=== PATIENT | male | born 1945 | race Caucasian/White ===

== ENCOUNTER 2016-09-07 09:36 | Inpatient (IN) | payer MEDICARE, MEDICAID ==
[~2016-09-07] VITALS: Ht 165.1 cm; Wt 79.1 kg
[~2016-09-07 09:36] MED LIST: ACETAMINOPHEN325 MG PO; ASPIRIN81 MG PO; ATROVENT 0.02%2.5 ML UPD; BENADRYL25 MG PO; BREO ELLIPTA 11 EACH INH; BUMEX 1 MG TAB1 MG PO; DULCOLAX10 MG/SUPP RC; ELIQUIS5 MG PO; GABAPENTIN100 MG PO; GAS-X80 MG PO; HUMALOG 30100 UNITS/ SC; IPRAT-ALBUT 0.5-3 ML UPD; METOPROLOL TART25 MG PO; MIRALAX17 GM PO; MUCINEX DM ER1 EAC1 PO; PEPCID20 MG PO; PERCOCET 5-3251 TAB PO; PRAVACHOL20 MG PO; PROTONIX40 MG PO; PROZAC20 MG PO; PULMICORT0.5 MG/21 INH; SINGULAIR10 MG PO; SPIRIVA18 MCG INH; STERAPRED 5MG 65 M1 PO; THEO-24300 MG PO; VALTREX500 MG PO; VIBRAMYCIN 100100 MG PO; VITAMIN D5000 UNIT PO; XANAX0.5 MG PO
[2016-09-07] MEDS ORDERED: DULCOLAX5 MG PO (11:27)
[2016-09-07] MEDS ORDERED: COUMADIN5 MG PO (11:27)
[2016-09-07] MEDS ORDERED: IPRAT-ALBUT 0.5-3 ML UPD (11:30)
[2016-09-07] MEDS ORDERED: BUSPAR5 MG PO (11:30)
[2016-09-07] MEDS ORDERED: LEVEMIR100 U/M1 SC ×2 (11:31→11:32)
[2016-09-07] MEDS ORDERED: INSTA-GLUCOSE31 G1 PO (11:44)
[2016-09-07] MEDS ORDERED: GLUCAGEN1 MG/VIAL SC (11:44)
[2016-09-07] MEDS ORDERED: BACTROBAN NASAL1 GM NASAL (11:46)
[2016-09-07] MEDS ORDERED: BACTROBAN CREAM15 GM TOPICAL (11:48)
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
[2016-09-07 16:09] VITALS: BP 100/77; BMI 27.5
--- NOTE | 2016-09-07 17:54 | NUR ---
PATIENT FINISHED EATING DINNER, HE WENT TO GO THROUGH THE DOUBLE DOORS TO HIS ROOM, ASKED HIM IF I COULD HELP HIM, HE SAID "YES, I'M GOING THAT WAY TO MY ROOM, TO BED" EXPLAINED TO HIM THAT HE WAS NOT ABLE JUST YET. HE SAID "THAT'S DUMB" EXPLAINED THAT'S JUST SOME OF THE RULES. PATIENT WOULD NOT MOVE FROM THE DOOR SO THIS NURSE AND DIETARY STAFF COULD GO THROUGH THE DOOR. TRIED TO EXPLAIN AND REASON WITH PATIENT, BUT HE IS NOT LISTENING. HE IS STILL SITTING BY DOOR IN HIS W/C.
[2016-09-07 19:30] VITALS: BP 101/67
[2016-09-07 19:45] LABS: BASOPHILS 0.1 % (0.0-2.0); HEMOGLOBIN 13.1 g/dL (13.5-17.5); IMMATURE GRANULOCYTES 0.5 % (0-5); LYMPHOCYTES 10.1 % (15-50); MCH 28.6 pg (26.0-34.0); MCHC 31.2 g/dL (31.0-37.0); MCV 91.7 fL (80.0-100.0); MEAN PLATELET VOLUME 9.8 fL (7.4-10.4); MONOCYTES 10.2 % (2-11); NEUTROPHILS 77.1 % (40-80); RBC 4.58 10x6/uL (4.20-6.10); RDW 14.2 % (11.5-14.5); WBC 8.8 10x3/uL (4.8-10.8)
[2016-09-07 19:47] LABS: PLATELET COUNT 203 10x3/uL (130-400)
[2016-09-07 20:10] LABS: HEMOGLOBIN A1C 8.4 % (4.8-6.0)
[2016-09-07 20:16] LABS: ALBUMIN 3.3 g/dL (3.4-5.0); ALKALINE PHOSPHATASE 64 U/L (46-116); ALT (SGPT) 31 U/L (10-68); BILIRUBIN - TOTAL 0.27 mg/dL (0.2-1.3); CALC OSMOLALITY 282 mosm/kg (275-300); CALCIUM 9.3 mg/dL (8.5-10.1); CARBON DIOXIDE 33.1 mmol/L (21.0-32.0); CHLORIDE - SERUM 98 mmol/L (98-107); CHOLESTEROL, TOTAL 208 mg/dL (0-200); CREATININE - SERUM 1.5 mg/dL (0.6-1.3); GLUCOSE 219 mg/dL (74-106); HDL CHOLESTEROL 42 mg/dL (32-96); POTASSIUM - SERUM 4.3 mmol/L (3.5-5.1); PROTEIN - SERUM 6.7 g/dL (6.4-8.2); SODIUM 137 mmol/L (136-145); THYROID STIMULATING HORMONE 1.02 uIU/mL (0.36-3.74); TRIGLYCERIDE 490 mg/dL (30-200); UREA NITROGEN 19 mg/dL (7-18); eGFR NON AFRICAN AMERICAN 49 mL/min (90-120)
[2016-09-08 00:58] LABS: APPEARANCE CLEAR (CLEAR); BILIRUBIN NEGATIVE (NEGATIVE); COLOR YELLOW (YELLOW); GLUCOSE NEGATIVE (NEGATIVE); KETONE NEGATIVE (NEGATIVE); LEUKOCYTE ESTERASE NEGATIVE (NEGATIVE); NITRITE NEGATIVE (NEGATIVE); PROTEIN NEGATIVE (NEGATIVE); SPECIFIC GRAVITY 1.015 (1.005-1.020); UROBILINOGEN NORMAL (NORMAL)
--- NOTE | 2016-09-08 01:59 | NUR ---
AWAKE AND COMPLAINING OF LEFT ABDOMINAL CHEST DISCOMFORT AT LEVEL#10. TYLENOL 650 MG. PO GIVEN, O2 SAT= 96% AFTER O2 APPLIED. HE DOES SNEEZE AT TIMES.
--- NOTE | 2016-09-08 02:59 | NUR ---
STILL COMPLAINING OF UPPER LEFT CHEST AREA ACHING AND THROBBING. PERCOCET 5/325 MG PO GIVEN FOR LEVEL #10 DISCOMFORT.
--- NOTE | 2016-09-08 06:30 | NUR ---
FSBS= 86 GIVEN A GLASS OF ORANGE JUICE.
[2016-09-08 09:27] VITALS: Ht 165.1 cm; Wt 79.1 kg
[2016-09-08 09:45] LABS: INR 1.12 (0.85-1.17); PROTIME 14.3 SECONDS (11.6-15.0)
[2016-09-08 10:37] VITALS: BP 151/71
--- NOTE | 2016-09-08 15:35 | NUR ---
RECEIVED SITTING UP IN WC IN HALLWAY AT NURSES STATION THIS AM.IS COMPLIANT WITH STAFF AND MEDS BUT STATE"WHEN I GET BACK THERE I'M GOING TO FIND OUT WHO SAID THAT ABOUT ME,I'M GOING TO RAISE HELL."WILL CONTINUE WITH PLAN OF CARE,MONITOR FOR SAFETY AND CHANGES.
[2016-09-08 20:00] VITALS: BP 114/64
--- NOTE | 2016-09-09 01:47 | NUR ---
B) Recieved sitting in a wheelchair in the day room, watching TV, Alert and oriented X 3, calm and social with peers, remembers this nurse from 7 months ago, I) Administered perscribed medications, redirected as needed, PRN Percocet PO given at 0100 for abdomen pain , R) Medication compliant, needy and attention seeking at times, P) Continue plan of care, continue to monitor.
[2016-09-09 07:29] LABS: INR 1.14 (0.85-1.17); PROTIME 14.5 SECONDS (11.6-15.0)
--- NOTE | 2016-09-09 08:12 | NUR ---
B) Patient is awake and alert, he is hyperverbal and he is argumentative with staff, he was redirected and his retort "Well, someone has to give you a hard time" Patient is making remarks of the things he plans to do today. He is trying to get attention. Attempted to weigh patient and he is arguing with Lyudmila Tay [facility] saying he needs his leg to weigh. Attempted to redirect patient, but he argued and said "I need my leg to weigh, Told him "No, we weighed you on admit without your prosthesis" Patient argued and said "You never weighed me" Lyudmila explained to him that we are not arguing anymore. Did weigh patient with w/c and O2 tank, but on admit he stood without O2 on. Patient is on isolation and he has an ISO gown on d/t sores on his back. I) Provide prescribed meds, redirect as needed to appropriate behavior. R) Patient is sitting in hallway, arguing with staff. P) Continue plan of care.
[2016-09-09 09:55] VITALS: BP 117/68
--- NOTE | 2016-09-09 10:46 | NUR ---
Patient c/o pain, he says it is the end of his amputated leg, rates it /.
--- NOTE | 2016-09-09 11:20 | NUR ---
Patient no longer has pain at this time.
--- NOTE | 2016-09-09 17:38 | NUR ---
Patient continues to talk and talk and talk, some of the patients moved away from him because he wants to talk and they want to rest.
[2016-09-09 19:30] VITALS: BP 122/72
--- NOTE | 2016-09-09 22:09 | NUR ---
RECEIVED IN DAYROOM. SETTING IN WHEELCHAIR WITH PEERS AT HIS SIDE. SOCIAL WITH STAFF AND PEERS. CALM AND COOPERATIVE WITH CARE AND ASSESSMENT. ENCOURAGE TO ASK FOR ASSIST WHEN NEEDED. SHOWERED THIS PM. ENCOURAGE TO EXPRESS NEEDS. REINFORCE FALLS SAFETY. PM MEDS GIVEN ORDERED. RESTING IN BED AT THIS TIME. CONTINUE PLAN OF CARE
[2016-09-10 10:00] LABS: PROTIME 17.2 SECONDS (11.6-15.0)
[2016-09-10 10:03] LABS: INR 1.41 (0.85-1.17)
[2016-09-10 10:26] VITALS: BP 110/42
--- NOTE | 2016-09-10 10:52 | PSY ---
PATIENT NAME:YIN CRUZ MEDICAL RECORD: [id number] : 47 LOCATION:[facility] ADMISSION DATE: 09/07/16 ACCOUNT: [id number] PSYCHIATRIC EVALUATION DATE OF EVALUATION: 09/08/16 Initial Psychiatric Workup IDENTIFYING DATA: This is the first [facility] admission for this 70-year-old white male. The patient is a resident at [facility]. HISTORY OF PRESENT ILLNESS: This patient ____. He also has past history of marked anxiety disorder and poor impulse control. The patient was transferred and because of combative behavior with a roommate. The patient became upset when the roommate attempted to adjust the TV remote control. The patient has exhibited emotional lability in the past as well. Because of potential danger to others, the patient was admitted. PAST MEDICAL HISTORY: Significant for type 1 diabetes. The patient has had recent pneumonia, he has a chronic obstructive pulmonary disease, hypertension, past history of deep venous thrombosis. He has a history of peripheral neuropathy. He has undergone a left [id number] amputation, and has a history of peripheral vascular disease as well. The patient also has a past history of MRSA. ALLERGIES: INCLUDE PENICILLIN AND SULFONAMIDE ANTIBIOTICS. FAMILY HISTORY: Noncontributory. SOCIAL HISTORY: The patient does not have substance abuse issues. He has been a [facility] resident for some time. MENTAL STATUS: On interview, the patient's mood is, for the most part, euthymic. Affect is rather constricted. Speech tends to be terse. Content of thought is focused on somatic complaints. The patient denies suicidal ideation. There is no clear cut psychosis. On sensorium testing, the patient is oriented to person and the fact that he is hospitalized. He is not correctly oriented as to the date. Remote recall appears to be intact. Intermediate and short-term recall shows some deficits. Insight is very limited. Judgment is quite poor. DIAGNOSTIC IMPRESSION: AXIS I: Major depressive disorder - recurrent by history, possible impulse control disorder. AXIS II: Deferred. AXIS III: Type 1 diabetes, hypertension, chronic obstructive pulmonary disease, deep venous thrombosis by history of below the knee amputation, vitamin D deficiency. AXIS IV: Moderate. AXIS V: 36. PLAN: 1. The patient is admitted for medication adjustment as indicated. 2. Supportive therapy. 3. We will coordinate with correction regarding aftercare. TRANSINT:[id number] Voice Confirmation ID: [id number] DOCUMENT ID: [id number] ALEXEI LOO III, MD at 1052 CC: [id number] DICTATION DATE: 09/08/161701 FIFTH HAND: 09/08/16 1815 ADM IN [place] [id number] [place] [id number]
[2016-09-10 11:12] LABS: VITAMIN D 25 HYDROXY 29.5 ng/mL (30.0-100.0)
--- NOTE | 2016-09-10 13:00 | NUR ---
B.) Alert and oriented to name and place. I.) Administer meds and monitor compliance, encourage group participation and socialization, redirect for any inappropriate behavior. R.) Compliant with medications. social with others, pleasant and cooperative with no aggression. Contact precautions maintained, compliant with leaving gown and gloves on. safety maintained. P.) Continue plan of care.
[2016-09-10 20:26] VITALS: BP 115/65
--- NOTE | 2016-09-10 21:50 | NUR ---
RECEIVED IN BEDROOM. LAYING IN BED WITH EYES CLOSED. RESPONDS TO TOUCH. CALM AND COOPERATIVE WITH CARE AND ASSESSMENT. NO SIGNS OF AGGRESSION. ENCOURAGE TO ASK FOR ASSIST WHEN NEEDED. PM MEDS GIVEN ORDERED. RESTING EYES CLOSED AT THIS TIME. CONTINUE PLAN OF CARE
[2016-09-11 03:09] LABS: RAPID PLASMA REAGIN Non Reactive (Non Reactive)
[2016-09-11 09:12] LABS: FOLATE (FOLIC ACID) - SERUM 4.3 ng/mL (>3.0)
[2016-09-11 09:44] LABS: PROTIME 20.5 SECONDS (11.6-15.0)
[2016-09-11 09:50] LABS: INR 1.76 (0.85-1.17)
[2016-09-11 10:14] VITALS: BP 103/69
--- NOTE | 2016-09-11 10:37 | NUR ---
Nutrition Follow Up: Chart reviewed. Noted Promod was ordered for pt. Diet: ADA AHA PO Intake: 100% x 10 meals +BM 09/10/16 Labs noted; Labs elevated Meds: Methylprednisone, Levemir, Vit D, Bumex, Humalog Pt with excellent po intake at this time. Pt is meeting est nutritional needs. Rec continue current diet. Rec d/c Promod. RD following.
--- NOTE | 2016-09-11 10:40 | PN ---
PATIENT:YIN CRUZ MEDICAL RECORD: [id number] LOCATION:[facility] ADMISSION DATE: 09/07/16 PROGRESS NOTE DATE OF SERVICE: 09/10/2016 SUBJECTIVE: The patient states that he does not feel well. OBJECTIVE: The patient continues to exhibit very withdrawn behavior. Affect is flat. Mood is very sullen. Speech is somewhat dysarthric, low in volume and poorly articulated. Content of thought appears to be negative for overt psychosis. Sensorium testing reveals the patient is oriented to person and the fact that he is hospitalized. He is not correctly oriented as to time. Concentration, short term recall are poor. ASSESSMENT: No change in diagnoses. PLAN: 1. Add Lexapro 10 mg daily. 2. Continue other currently ordered medication. 3. Continue supportive therapy. TRANSINT:[id number] Voice Confirmation ID: [id number] DOCUMENT ID: [id number] ALEXEI LOO III, MD at 1040 CC: [id number] DICTATION DATE: 09/10/16 1138 [place] ADMINISTRATOR: 09/10/16 [address] [facility] [address] [id number]
--- NOTE | 2016-09-11 11:29 | NUR ---
B.) Received this am lying in bed, alert and oriented to name, patient avoids ansering questions regarding place and time, laughs and says " in this bed right here." aludes questions by talking around questions. I.) Administer prescribed medications and monitor compliance. Reorient and redirect as need for inappropriate behavior. Monitor safety and maintain contact precautions. R.) Compliant with medications, very social with others with no aggression but is intrusive and provocative, observed trying to make a patient play dominoes with him made statement of " that doctor just trying to read my mind, aint nothing the wrong with me." Compliant with wearing isolation gown and gloves. Left leg prothesis on, chair alarm in place and functioning properly. P.) Continue plan of care.
[2016-09-11 19:40] VITALS: BP 134/73
--- NOTE | 2016-09-11 21:06 | NUR ---
RECEIVED IN DAYROOM. SETTING IN WHEELCHAIR. MOVING ABOUT SOCIALIZING. INTRUSIVE AT TIMES. CALM AND COOPERATIVE WITH CARE AND ASSESSMENT. NO SIGNS OF AGGRESSION. REDIRECT NEEDED. PM MEDS GIVEN ORDERED. TRANSFERE TO BEDROOM AT THIS TIME. CONTINUE PLAN OF CARE
[2016-09-12 06:53] LABS: INR 2.34 (0.85-1.17); PROTIME 25.7 SECONDS (11.6-15.0)
--- NOTE | 2016-09-12 07:41 | PN ---
PATIENT:YIN CRUZ MEDICAL RECORD: [id number] LOCATION:[facility] ADMISSION DATE: 09/07/16 PROGRESS NOTE DATE OF SERVICE: 09/11/2016 SUBJECTIVE: The patient states, "You all are trying to control me and read my mind." OBJECTIVE: The patient has been provocative with other patients. He has been deliberately irritating certain female patients and has to be redirected. Staff note that he seems to have a great deal of difficulty following instructions and there are frequent word finding pauses as well. On exam, mood is irritable. Affect is brittle. Speech is repetitive. Content of thought is positive for paranoid ideation. On sensorium testing, the patient is oriented to person, but not precisely as to location, although he knows he is in a hospital. He is not oriented as to time. 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 PLAN: 1. Continue current medications. 2. We will ask Dr. Anderson to evaluate. 3. Continue supportive therapy. TRANSINT:[id number] Voice Confirmation ID: [id number] DOCUMENT ID: [id number] ALEXEI LOO III, MD at 0741 CC: [id number] DICTATION DATE: 09/11/16 1130 FARMWORKER GENERAL: 09/11/16 1200 ADM IN [place] [id number] [place] [id number]
[2016-09-12 08:03] VITALS: BP 115/51
--- NOTE | 2016-09-12 19:49 | PN ---
PATIENT:YIN CRUZ MEDICAL RECORD: [id number] LOCATION:[facility] ADMISSION DATE: 09/07/16 PROGRESS NOTE DATE OF SERVICE: 09/12/2016 SUBJECTIVE: The patient complains about having to be in the hospital. OBJECTIVE: The patient becomes very easily agitated, verbally and has to be redirected. He now does not like the fact that he is in the isolation for infection. On exam, mood is irritable. Affect is brittle. Speech is slightly pressured at times. Content of thought focuses on paranoid ideation and somatic complaints. Sensorium unchanged. ASSESSMENT: No change in diagnosis. PLAN: 1. We will continue all current medications. 2. Continue supportive therapy. TRANSINT:[id number] Voice Confirmation ID: [id number] DOCUMENT ID: [id number] ALEXEI LOO III, MD at 1949 CC: [id number] DICTATION DATE: 09/12/16 112 TECHNICIAN TRAINEE: 09/12/16 1149 ADM IN [facility] [address] [place] [address]
[2016-09-12 19:53] VITALS: BP 111/60
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
--- NOTE | 2016-09-13 05:13 | NUR ---
B) RECIEVED SITTING IN A WHEEL CHAIR IN THE DAY ROOM WATCHING TV, ALERT AND ORIENTED X 3 , INTRUSIVE AT TIMES, CALM AND COOPERATIVE WITH STAFF, I) ADMINISTERED PERSCRIBED MEDICATIONS, REDIRECTED NEEDED, R) MEDICATIONS COMPLIANT, NO DISTRESS NOTED, P) CONTINUE PLAN OF CARE.
[2016-09-13 07:49] LABS: INR 2.65 (0.85-1.17); PROTIME 28.4 SECONDS (11.6-15.0)
[2016-09-13 08:08] VITALS: BP 114/71
--- NOTE | 2016-09-13 13:01 | NUR ---
B.) Alert and oriented to name, will not answer question of place and time " I'm still here." I.) Administer prescribed medications and monitor compliance, reorient and redirect as need. Monitor safety and maintenance of contact precautions. R.) Compliant with medications, smiles and is very social and intrusive with others, noted purposely aggitating one of his peers by putting news paper in her face and waiting for her to hit at it and pulled it away, laughing... redirect for inappropriate behavior...redirectable. No aggresive or combative behavior. Safety maintained contact isolation maintained with gown and gloves on and appropriate distance from other patients, areas kept cleaned. P.) Continue plan of care.
[2016-09-13 19:30] VITALS: BP 107/67
--- NOTE | 2016-09-13 20:26 | NUR ---
RECEIVED IN DAYROOM. SETTING IN WHEELCHAIR IN FRONT OF TV. CONTACT ISOLATION CONTINUES. CALM AND COOPERATIVE WITH CARE AND ASSESSMENT. SOCIAL WITH STAFF AND PEERS. O2@2L/M VIA N/C. NO SIGNS OF AGGRESSION. REDIRECT NEEDED. ENCOURAGE TO EXPRESS NEEDS. CONTINUES TO SET QUIETLY WATCHING TV. CONTINUE PLAN 0F CARE
[2016-09-14 07:48] LABS: INR 2.98 (0.85-1.17); PROTIME 31.2 SECONDS (11.6-15.0)
[2016-09-14 08:08] VITALS: BP 111/54
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
[2016-09-14 20:00] VITALS: BP 220/128
--- NOTE | 2016-09-14 23:57 | NUR ---
B) Recieved sitting in a wheel chair in the day room, alert and oriented X 3, calm and cooperative, I) Administered perscribed medications, redirected as needed, R) Medication compliant, social with staff, P) Continue plan of care, continue to monitor.
[2016-09-15 06:51] LABS: INR 2.15 (0.85-1.17)
[2016-09-15 10:39] VITALS: BP 107/65
--- NOTE | 2016-09-15 14:46 | NUR ---
B) Patient is awake and alert and he is watching tv and he is coloring, he is staying busy, but he does have some confusion. Dr. Anderson came in to assess another patient and he cornered her to ask her "Why have you prescribed all those pills" Dr. Anderson said "I don't prescribed medicine, it must have been either Dr. Gray or Dr. Mixon He said "No, he said you would do it" Dr. Anderson said "No, you must have it confused" and she walked away as he wanted to be confrontational. He said "I don't have anything confused" Patient wears a prosthesis and he can ambulate with a walker, self propels in a w/c at times and he is independent to transfer. I) Provide prescribed meds and redirect to appropriate milieu. R) Patient is compliant with meds and he listens to redirection. He is a bit disgruntled to be here and he said "I'm tired of taking all of these medicines" P) Continue plan of care.
[2016-09-15 19:36] VITALS: BP 108/66
--- NOTE | 2016-09-16 00:31 | NUR ---
B) Recieved sitting in a wheel chair in the day room, alert and oriented X 3, calm and cooperative with staff, I) Administered perscribed medications, redirected as needed, R) Medication compliant, more sedated that usual P) Continue plan of care, continue to monitor.
[2016-09-16 09:59] VITALS: BP 102/50
[2016-09-16 10:10] LABS: INR 1.76 (0.85-1.17); PROTIME 20.5 SECONDS (11.6-15.0)
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
[2016-09-16 20:00] VITALS: BP 130/86
--- NOTE | 2016-09-17 00:24 | NUR ---
B) recieved sitting in a wheel chair in the day room , alert and oriented x 3, watching TV, calm and pleasant, I) Administered perscribed medications, assisted with transfers, R) refused Depakote , took all other medications, stated that he was too sedated yesterday, P) Continue plan of care, continue to monitor.
[2016-09-17 07:03] LABS: INR 1.62 (0.85-1.17); PROTIME 19.2 SECONDS (11.6-15.0)
--- NOTE | 2016-09-17 10:16 | PN ---
PATIENT:YIN CRUZ MEDICAL RECORD: [id number] LOCATION:[facility] ADMISSION DATE: 09/07/16 PROGRESS NOTE DATE OF SERVICE: 09/13/2016 SUBJECTIVE: The patient states "I don't care." OBJECTIVE: The patient did undergo neuropsychological testing with Dr. Anderson today. Results indicate moderate to severe level of dementia. The patient remains rather poorly cooperative. He is also provocative and intrusive with other patients and requires redirection. On exam, mood is irritable. Affect is brittle. Speech is terse. Content of thought is positive for nonspecific paranoid ideation. Sensorium shows no change. ASSESSMENT: No change in diagnosis. PLAN: 1. Begin Namenda 5 mg b.i.d. 2. Add Depakote 375 mg b.i.d. 3. Valproic acid blood level in 2 days. 4. Continue other medications and supportive therapy. TRANSINT:[id number] Voice Confirmation ID: [id number] DOCUMENT ID: [id number] ALEXEI LOO III, MD at 1016 CC: [id number] DICTATION DATE: 09/13/16 1221 LEAD ADVISOR: 09/13/16 1333 ADM IN [facility] [address] [id number]
[2016-09-17 10:28] VITALS: BP 106/59
--- NOTE | 2016-09-17 13:51 | PN ---
PATIENT:YIN CRUZ MEDICAL RECORD: [id number] LOCATION:[facility] ADMISSION DATE: 09/07/16 PROGRESS NOTE DATE OF SERVICE: 09/14/2016 SUBJECTIVE: The patient's case was discussed with staff. He has no new complaint. OBJECTIVE: The patient is in good behavioral control, but has limited insight about his condition. He does tolerate his medications reasonably well. ASSESSMENT: No change in diagnoses. PLAN: I am going to start the patient on antidepressant medication. He has been paranoid and intrusive. He is already taking an antipsychotic. I am going to check a Depakote level to see if that is close to therapeutic and I have asked Dr. Alley Anderson to test him since I think this patient has evidence of pretty significant and severe cognitive impairment. TRANSINT:[id number] Voice Confirmation ID: [id number] DOCUMENT ID: [id number] SAGE MALONE MD at 1351 CC: [id number] DICTATION DATE: 09/14/16 142 BACK MAKER: 09/14/16 1805 ADM IN [facility] [address] [place] [address]
--- NOTE | 2016-09-17 16:50 | NUR ---
RECEIVED THIS AM SITTING UP IN WC AT NURSES STATION.CALM AND COOPERATIVE.TOOK ALL AM MEDS EXCEPT FOR DEPAKOTE,STATES"IT MAKES ME CRAZY."WILL CONTINUE WITH PLAN OF CARE,MONITOR FOR SAFETY AND CHANGES.IS ALERT AND ORIENTED,PROPELLS SELF IN WC .
--- NOTE | 2016-09-17 17:45 | NUR ---
Contact isolation precautions maintained and patient compliant.
--- NOTE | 2016-09-17 17:47 | NUR ---
Patient is demanding and argumentive but is not combative with staff or peers.
[2016-09-17 19:39] VITALS: BP 116/67
--- NOTE | 2016-09-17 20:59 | NUR ---
RECEIVED IN DAYROOM. SETTING ON SOFA. ISOLATION CONTINUES. O2@2L/M VIA N/C. NO SIGNS OF ANXIETY OR DEPRESSION. CALM AND COOPERATIVE WITH CARE AND ASSESSMENT. REDIRECT AND REORIENT NEEDED. PM MEDS GIVEN ORDERED. RESTING IN ROOM AT THIS TIME. CONTINUE PLAN OF CARE
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
--- NOTE | 2016-09-18 09:45 | NUR ---
B.) Alert and oriented to name and place, has no insight to why he is hospitalized, calm and cooperative with assessment this am. I.) Adm. precribed medications and monitor compliance, redirect and reorient as need. Monitor safety and encourage group participation. R,) Compliant with all his medications except the Depakote, states it makes him feel " crazy", Patient less talkative today with staff and peers. Asked if he was depressed, he just looked at nurse and would not say, later he was sitting up at table conversing with director of student financial aid and smiled and joked with this nurse. No signs of anxiety or intrusive behavior today. Isolation precautions maintained P.) Continue plan of care.
--- NOTE | 2016-09-18 11:07 | NUR ---
Nutrition Follow Up: Chart reviewed. Diet: AHA ADA; Promod PO Intake: 91% (8 meal avg) +BM 09/17/16 Labs noted - Glucose elevated Meds: Coumadin, Bumex, Levemir, Humalog Pt with good po intake at this time. Rec continue current diet. Rec d/c Promod. RD following.
[2016-09-18 14:08] VITALS: BP 132/68
[2016-09-18 15:40] LABS: INR 1.74 (0.85-1.17); PROTIME 20.3 SECONDS (11.6-15.0)
[2016-09-18 20:35] VITALS: BP 125/66
[2016-09-18 21:25] VITALS: BP 105/66
--- NOTE | 2016-09-18 22:10 | NUR ---
RECEIVED IN DAYROOM. SETTING IN DAYROOM ON SOFA. LETHARGIC. COOPERATIVE WITH CARE. TEMP 101.9 TYLENOL 650MG PO GIVEN FOR FEVER. PULSE 132 R 32. REASSESS VITALS TEMP 102.1 B/P 105/66, P 137, RESP 30, O2 SAT 97, DR BEAR PAGED AND CALL RECEIVED, NEW ORDERS FOR CARDIAC ENZYMES ORDERED FOR NOW. TROPONIN, CMP,CBC,CK AND CXR
[2016-09-18 23:07] LABS: BASOPHILS 0 % (0.0-2.0); EOSINOPHILS 3.5 % (0-7); HEMATOCRIT 37.5 % (42.0-54.0); HEMOGLOBIN 11.9 g/dL (13.5-17.5); IMMATURE GRANULOCYTES 0.4 % (0-5); MCH 29.2 pg (26.0-34.0); MCHC 31.7 g/dL (31.0-37.0); MCV 91.9 fL (80.0-100.0); MONOCYTES 7.6 % (2-11); NEUTROPHILS 85.5 % (40-80); PLATELET COUNT 196 10x3/uL (130-400); RBC 4.08 10x6/uL (4.20-6.10); RDW 15.9 % (11.5-14.5); WBC 10.9 10x3/uL (4.8-10.8)
[2016-09-18 23:22] LABS: ALBUMIN 2.4 g/dL (3.4-5.0); ALKALINE PHOSPHATASE 94 U/L (46-116); ALT (SGPT) 52 U/L (10-68); BILIRUBIN - TOTAL 0.79 mg/dL (0.2-1.3); CALCIUM 9.1 mg/dL (8.5-10.1); CHLORIDE - SERUM 98 mmol/L (98-107); CREATINE KINASE 43 UL (21-232); CREATININE - SERUM 1.5 mg/dL (0.6-1.3); POTASSIUM - SERUM 3.9 mmol/L (3.5-5.1); PROTEIN - SERUM 6.5 g/dL (6.4-8.2); SODIUM 134 mmol/L (136-145); UREA NITROGEN 26 mg/dL (7-18); eGFR NON AFRICAN AMERICAN 49 mL/min (90-120)
[2016-09-18 23:23] LABS: CALC OSMOLALITY 274 mosm/kg (275-300); GLUCOSE 142 mg/dL (74-106); TROPONIN-I < 0.017 ng/mL (0.000-0.060)
[2016-09-19] VITALS (7 sets, daily range): BP systolic 107–119; BP diastolic 62–71
--- NOTE | 2016-09-19 02:37 | NUR ---
NEW ORDERS RECEIVED FROM DR BEAR FOR LASIX 40 MG PO ONE, ZITHROMAX 500 MG PO DAILY FOR 5 DAYS, ROCEPHIN 1 GM IM DAILY FOR 7 DAYS. GIVE FIRST DOSES NOW.
--- NOTE | 2016-09-19 06:36 | NUR ---
DR BEAR PAGED AND UPDATED ON PATIENT STATUS. NEW ORDERS RECEIVED. BLOOD CULTURES NOW. ADMIT TO FLOOR.
--- NOTE | 2016-09-19 08:01 | NUR ---
TEMP. 101 ORALLY, PROVIDED TYELNOL 650 MG PO NOW.
[2016-09-19] MEDS ORDERED: BENADRYL25 MG PO (08:49)
[2016-09-19] MEDS ORDERED: TUDORZA PRESS400 MCG INH (08:50)
[2016-09-19] MEDS ORDERED: MACRODANTIN50 MG PO (08:50)
[2016-09-19] MEDS ORDERED: Rocephin INJ IM (08:50)
[2016-09-19] MEDS ORDERED: ZITHROMAX250 MG PO (08:50)
[2016-09-19] MEDS ORDERED: COUMADIN2 MG PO (08:51)
[2016-09-19] MEDS ORDERED: COUMADIN2.5 MG PO (08:51)
[2016-09-19] MEDS ORDERED: TEGRETOL XR200 M1 PO (08:52)
[2016-09-19] MEDS ORDERED: LOTRISONE CREAM45 GM TOPICAL (08:54)
[2016-09-19] MEDS ORDERED: LIDOCAINE HC10 MG/M3 IM (08:54)
--- NOTE | 2016-09-19 08:56 | PN ---
PATIENT:YIN CRUZ MEDICAL RECORD: [id number] LOCATION:[facility] ADMISSION DATE: 09/07/16 PROGRESS NOTE DATE OF SERVICE: 09/18/2016 SUBJECTIVE: No new complaint. OBJECTIVE: Staff reports the patient has been fairly cooperative over the last 24 hours with the exception of his continued refusal to take Depakote. The patient objects to the consistency of the medicine evidently. No combativeness in the last 24 hours, but the patient continues to show lability of affect and intrusiveness. On exam, mood irritable. Affect is brittle and shallow. Speech is tangential. Content of thought continues to exhibit nonspecific paranoid ideation. Sensorium shows no change. ASSESSMENT: No change in diagnosis. PLAN: 1. We will discontinue Depakote. 2. Begin extended release Tegretol 200 mg b.i.d. 3. Carbamazepine blood level in 2 days. 4. Continue other meds and supportive therapy. TRANSINT:[id number] Voice Confirmation ID: [id number] DOCUMENT ID: [id number] ALEXEI LOO III, MD at 0856 CC: [id number] DICTATION DATE: 09/18/16 1251 [employer] WEBSPHERE PORTAL DEVELOPER: 09/18/16 1357 ADM IN [id number] [place] [address]
--- NOTE | 2016-09-19 09:00 | NUR ---
RECHECKED TEMP 99 ORALLY, PATIENT DID TAKE SIPS OF WATER, BUT WOULD NOT TAKE HIS SCEDULED MEDS, HE FEELS BADLY, AWAKENS FOR BRIEF MINUTES, BUT MOSTLY SLEEPING.
[2016-09-19 09:27] LABS: PROTIME 22.7 SECONDS (11.6-15.0)
--- NOTE | 2016-09-19 13:30 | NUR ---
VITAL SIGNS TAKEN BP 119/70, P 121, R 20, 94% ON 02 AT 2L/M PER NC TEMP 97.9, DORA FROM IV TEAM CAME AND STARTED IV TWO ATTEMPS UNSUCCESSFUL, THIRD SUCCESSFUL WITH 20 G IN LEFT HAND. PATIENT DOES HAVE A RASH ALL OVER HIS BODY UPTO HIS NECK, HAD DR CALVERT VISUALIZE AND CALLED DR BEAR. D/C ANTIBIOTICS AND GIVE BENADRYL 50 MG IV ONE TIME, START 1/2 NS AT 75 WHEN MEDS AND FLUIDS ARRIVE. PATIENT MORE ALERT, HE IS DRINKING ICE WATER, REFUSES MEDS, HE IS URINATING, BUT URINE IS JENIFER IN COLOR.
--- NOTE | 2016-09-19 13:42 | NUR ---
iv ACCESS-#22 iv CATH IN LEFT HAND FOR SALINE LOCK. DORA SONI RN
--- NOTE | 2016-09-19 14:17 | NUR ---
Patient covered in rash, Benadryl 50 mg IV given now. Patient denies any itchiness.
--- NOTE | 2016-09-19 14:30 | NUR ---
Provided patient with ice water, patient spilled water all over the floor and he did try to use the urinal and spilled urine. Changed bed linens and patients gown. When rolling patient from side to side he did c/o pain allover. Did relay information to Dr. Munoz. Patient is more alert and talking and answering questions.
--- NOTE | 2016-09-19 22:30 | NUR ---
RECEIVED IN ROOM LYING IN BED WITH HOB ELEVATED. ALERT AND ORIENTED. RASH ALL OVER ENTIRE BODY. VSS. CALM AND COOPERATIVE WITH CARE. ASSESSMENT COMPLETED PER FLOW SHEET. IV INFUSING PER LEFT WRIST WITH 1/2 NS AT 75CC/HR. O2 ON AT 2L/HR. CONTINUE PLAN OF CARE AND MONITOR.
[2016-09-20 00:08] VITALS: BP 102/60
[2016-09-20 06:55] LABS: INR 2.21 (0.85-1.17); PROTIME 24.6 SECONDS (11.6-15.0)
--- NOTE | 2016-09-20 07:25 | NUR ---
Called Tammy Del Angel to let her know of patient's status, jboss developer reports patient spiked temp last night and his pulse has been elevated in the 120's, patient is able to respond and talk, but he is lethargic, his rash is more pronounced, temp now is 102.5. Dr. Munoz requests transfer to ICU. Increased oxygen to 3L/M per NC and sat patient up. Dr. Munoz ordered labs, cxr, pulmonary, and infection specialist.
[2016-09-20 07:30] VITALS: BP 97/59
[2016-09-20 08:10] VITALS: BP 97/59
--- NOTE | 2016-09-20 08:33 | NUR ---
Provided Benadryl 25 mg po and Tylenol 650 mg po. Patient able to swallow meds and drink water.
--- NOTE | 2016-09-20 08:45 | NUR ---
Report called to ICU.
[2016-09-20 08:48] LABS: BASOPHILS 0.1 % (0.0-2.0); EOSINOPHILS 1.5 % (0-7); HEMATOCRIT 38.6 % (42.0-54.0); HEMOGLOBIN 12.2 g/dL (13.5-17.5); IMMATURE GRANULOCYTES 7.4 % (0-5); LYMPHOCYTES 3.1 % (15-50); MCH 29.1 pg (26.0-34.0); MCHC 31.6 g/dL (31.0-37.0); MCV 92.1 fL (80.0-100.0); MEAN PLATELET VOLUME 10.5 fL (7.4-10.4); MONOCYTES 4.1 % (2-11); NEUTROPHILS 83.8 % (40-80); PLATELET COUNT 255 10x3/uL (130-400); RBC 4.19 10x6/uL (4.20-6.10); RDW 16.3 % (11.5-14.5); WBC 12.2 10x3/uL (4.8-10.8)
[2016-09-20 08:51] LABS: ANION GAP 16.7 mmol/L (8-16); CALCIUM 9.2 mg/dL (8.5-10.1); CARBON DIOXIDE 25.6 mmol/L (21.0-32.0); CREATININE - SERUM 2.1 mg/dL (0.6-1.3); POTASSIUM - SERUM 4.3 mmol/L (3.5-5.1)
--- NOTE | 2016-09-20 09:00 | NUR ---
Patient taken to ICU room 2312, assisted by Yuni Obrien RN and myself.
--- NOTE | 2016-09-20 09:56 | PN ---
PATIENT:YIN CRUZ MEDICAL RECORD: [id number] LOCATION:[facility] ADMISSION DATE: 09/07/16 PROGRESS NOTE DATE OF SERVICE: 09/19/2016 SUBJECTIVE: The patient complains of feeling ill. OBJECTIVE: The patient has become febrile the last 24 hours. He has been started on Rocephin. Oral intake is worsened. Dr. Munoz has ordered cultures and may well transfer to the medical floor. On exam, mood irritable. Affect is shallow and brittle. Speech terse. Content of thought focuses on somatic concerns. Sensorium is unchanged. ASSESSMENT: No change in diagnosis. PLAN: 1. Continue current treatment plan. 2. Anticipate possible transfer to medical floor. TRANSINT:[id number] Voice Confirmation ID: [id number] DOCUMENT ID: [id number] ALEXEI LOO III, MD at 0956 CC: [id number] DICTATION DATE: 09/19/16 1159 BOILER HELPER: 09/19/16 1821 DIS IN 09/20/16 [id number] [place] [address]
--- NOTE | 2016-09-20 12:35 | NUR ---
staff attempted multiple times to contact pt's sister, but the number we had on file was not the correct number. group social worker contacted [place] from which the pt came, but they had the same numbers. I relayed the attempts to contact family to ICU staff. all belongings taken to ICU along with pt's glasses, watch, and wheelchair.
--- NOTE | 2016-09-21 09:59 | DS ---
PATIENT:YIN CRUZ :47 MEDICAL RECORD: [id number] DISCHARGE SUMMARY ADMISSION DATE: 09/07/16 DISCHARGE DATE: 09/20/16 DATE OF ADMISSION: 09/07/2016 DATE OF DISCHARGE: 09/20/2016 HISTORY OF PRESENT ILLNESS: This was the first prison admission for this 70-year-old white male who is a resident of [facility]. The patient had a past history marked anxiety disorder and poor impulse control. He was transferred because he had become combative with the roommate. The patient had been exhibiting significant emotional lability and agitation as well. For further details, please see previously dictated history. COURSE IN THE HOSPITAL: The patient was seen by Dr. Gomez for medical management. Dr. Gomez noted the patient had a previous history of type 1 diabetes. He was insulin-dependent. Also, the patient had a recent history of pneumonia and had been hospitalized for this. He has ongoing COPD, hypertension, deep venous thrombosis, vitamin D deficiency, anemia, status post left below the knee amputation as well. During the course of the hospitalization, the patient did undergo neuropsychological testing. Although he was uncooperative, it was clear that the patient is suffering from significant dementia as well. The patient was treated during the hospitalization initially with a combination of moderate doses of neuroleptic as well as Depakote for control of his agitation. The patient was very medication noncompliant and eventually, Depakote was discontinued in favor of carbamazepine 200 mg twice a day. He had been receiving Risperdal 1.5 mg twice a day as well. Several days prior to transfer to the medical floor, the patient began to exhibit intermittent low grade fever. On the evening prior to transfer, the patient spiked a temperature of 102.5. On the morning of transfer, he also had become hypotensive. Prior to this time, primary care started the patient on Rocephin, but he quickly developed a generalized rash and this was discontinued. Because of the possibility of sepsis and obvious occult infection. The patient was transferred to the medical floor. 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 AXIS II: No diagnosis. AXIS III: Febrile illness of unknown origin- rule out sepsis, recent history of pneumonia, COPD, hypertension, deep venous thrombosis, left below the knee amputation, type 1 diabetes. AXIS IV: Severe. AXIS V: 32. PLAN: The patient is now transferred to medical floor for continued workup. TRANSINT:[id number] Voice Confirmation ID: [id number] DOCUMENT ID: [id number] DISCHARGE SUMMARY REPORT [id number] YIN CRUZ III, ALEXEI Mcclain MD at 0959 CC: [id number] DICTATION DATE: 09/20/16 1152 MOTORCYCLE MECHANIC APPRENTICE: 09/20/162003 DIS IN 09/20/16 [address] [place] [address]
== END 2016-09-20 09:03 | disposition short-term general hospital (02) | DRG 57 ==
LOC: D.PSYCH 09:36
PROVIDERS: Family Medicine; ADMIT Psychiatry & Neurology Psychiatry
DX: G30.9 Alzheimer's disease, unspecified (principal); F02.81 Dementia in other diseases classified elsewhere, unspecified severity, with behavioral disturbance; N39.0 Urinary tract infection, site not specified; F32.9 Major depressive disorder, single episode, unspecified; J44.9 Chronic obstructive pulmonary disease, unspecified; I10 Essential (primary) hypertension; Z89.512 Acquired absence of left leg below knee; E10.40 Type 1 diabetes mellitus with diabetic neuropathy, unspecified; Z79.4 Long term (current) use of insulin; F41.9 Anxiety disorder, unspecified; E78.5 Hyperlipidemia, unspecified; K21.9 Gastro-esophageal reflux disease without esophagitis; Z99.81 Dependence on supplemental oxygen; E55.9 Vitamin D deficiency, unspecified; Z86.718 Personal history of other venous thrombosis and embolism; A49.02 Methicillin resistant Staphylococcus aureus infection, unspecified site; L21.8 Other seborrheic dermatitis; B02.9 Zoster without complications; R26.89 Other abnormalities of gait and mobility

== ENCOUNTER 2016-09-20 09:39 | Inpatient (IN) | payer MEDICARE, MEDICAID ==
[~2016-09-20] VITALS: Ht 165.1 cm; Wt 71.5 kg
[2016-09-20] VITALS (57 sets, daily range): BP systolic 70–126; BP diastolic 48–85
--- NOTE | 2016-09-20 09:20 | NUR ---
PT ARRIVED TO ICU FROM REHAB VIA STRETCHER ACCOMPANIED BY LEAN PROCESS DEPLOYMENT CONSULTANT. PT HAS AMS, DOES NOT RESPOND TO QUESTIONS OR FOLLOW COMMANDS. PT HAS A RED RASH COVERING ENTIRE BODY AFTER RECEIVING ANTIBIOTICS. PT ATTACHED TO MONITOR. ST PER CM, HR IS 150, PT IS HYPOTENSIVE AND TACHYPNEIC. PT HAS NC @ 3L. CARTER INSERTED AT THIS TIME. AT BEDSIDE.
[~2016-09-20 09:39] MED LIST changes: +BACTROBAN CREAM15 GM TOPICAL; +BACTROBAN NASAL1 GM NASAL; +BUSPAR5 MG PO; +COUMADIN2 MG PO; +COUMADIN2.5 MG PO; +COUMADIN5 MG PO; +DULCOLAX5 MG PO; +GLUCAGEN1 MG/VIAL SC; +INSTA-GLUCOSE31 G1 PO; +LEVEMIR100 U/M1 SC; +LIDOCAINE HC10 MG/M3 IM; +LOTRISONE CREAM45 GM TOPICAL; +MACRODANTIN50 MG PO; +Rocephin INJ IM; +TEGRETOL XR200 M1 PO; +TUDORZA PRESS400 MCG INH; +ZITHROMAX250 MG PO
--- NOTE | 2016-09-20 11:21 | NUR ---
PICC LINE PLACED IN JUAN. PT SEEN BY DR MCCRAY/MULU/TERRELL. LEVOPHED INITIATED PER PROTOCOL. PT OPENS EYES AT THIS TIME, DOES NOT RESPOND VERBALLY/FOLLOW COMMANDS. WILL CONTINUE TO MONITOR.
--- NOTE | 2016-09-20 11:36 | NUR ---
PATIENT IS ADMITTED FROM CARE. HE HAS A DX OF DEMENTIA. HE WAS IN [facility] AND MOVED TO [facility]. THE CAME TO [facility]. PATIENT HAS A SISTER, JADIEL. THE NUMBER ON THE INFORMATION FROM [facility] IS NOT A WORKING NUMBER FOR HER. IF SHE CALLS CARE THEY WILL TRANSFER HER TO US. THEY WERE NOT ABLE TO NOTIFY HER OF HIS ADMIT TO ICU DUE TO NO GOOD NUMBER. PATIENT SHOULD BE AVAILABLE TO RETURN TO CARE WHEN HE IS MEDICALLY STABLE ACCORDING TO BONY, NURSE EDUCATOR SENIOR CLINICAL FOR CARE. CM TO FOLLOW.
--- NOTE | 2016-09-20 11:40 | NUR ---
* Is the patient Alert and Oriented? No 0 * Additional services required to return to the preadmission environment? No 0 * Can the patient safely return to the preadmission environment? Yes 0 * Has this patient been hospitalized within the prior 30 days at any hospital? Yes 0
[2016-09-20 11:49] LABS: APPEARANCE HAZY (CLEAR); BILIRUBIN NEGATIVE (NEGATIVE); COLOR DK YELLOW (YELLOW); GLUCOSE NEGATIVE (NEGATIVE); KETONE SMALL mg/dL (NEGATIVE); LEUKOCYTE ESTERASE NEGATIVE (NEGATIVE); NITRITE NEGATIVE (NEGATIVE); PROTEIN 1+ mg/dL (NEGATIVE); SPECIFIC GRAVITY 1.015 (1.005-1.020); UROBILINOGEN NORMAL (NORMAL)
[2016-09-20 11:50] LABS: AMORPHOUS SEDIMENT <1+ /lpf (NONE SEEN); BACTERIA MODERATE /hpf (NONE SEEN); EPITHELIAL CELLS 0-5 /hpf (0-5); MUCUS <1+ /lpf (NONE SEEN); RED CELLS - URINE 0-5 /hpf (0-5); WHITE CELLS - URINE 0-5 /hpf (0-5)
--- NOTE | 2016-09-20 12:04 | NUR ---
1115 CARE ASSUMED OF PT.. PT IS SLEEPING IN ICU BED PICC LINE IN PLACE IN LEFT UPPER ARM WITH D5NS INFUSING AT 125CC/HR AND LEVOPHED DRIP INFUSING AT 5 MCG INCREASED AT THIS TIME TO 6 MCG FOR BP SUPPORT.. O2 ON AT 3 LITERS PER NASAL CANNULA.. LEFT AKA WITH PROSTHESIS AND PERSONAL WHEELCHAIR IN PT ROOM.. CVP TO PICC 12 AT THIS TIME.. CARTER CATH IN PLACE.. 1200 WITHOUT VISITORS AT THIS TIME.. PT IS MORE AWAKE AND APPROPRIATE WITH RESPONSES..
[2016-09-20 15:26] LABS: ERYTHROCYTE SEDIMENTATION RATE 100 mm/hr (0-20)
--- NOTE | 2016-09-20 15:29 | NUR ---
1300 CONTINUE TO TITRATE LEVOPHED FOR BP CONTROL.. PT IS OBTUNDED AND WILL ROUSE ONLY TO NOXIOUS STIMULI 1400 US KIDNEY IN PROGRESS AT BEDSIDE.. 1500 DR BEAR IN TO SEE PT .. TITRATE LEVOPHED TO EFFECT.. PT REMAINS OBTUNDED RASH IS IMPROVED BUT STILL PRESENT OVER ENTIRE BODY..
--- NOTE | 2016-09-20 18:10 | NUR ---
1500 WITHOUT VISITORS IN TO SEE PT.. 1600 CONTINUES WITHOUT CHANGES BP IS MORE STABLE AND LEVOPHED AT STEADY RATE AT THIS TIME. REMAINS OBTUNDED RASH CONTUES SUBSIDED .. 1700 I AND O DONE 1800 WIHTOUT VISITORS AT THIS TIME..
--- NOTE | 2016-09-20 19:20 | NUR ---
ASSESSMENT COMPLETE, PATIENT WAS SLEEPING WHEN ENTERING ROOM, AWOKE TO VOICE. PATIENT IS ALERT AND ORIENTED, ANSWERS QUESTIONS APPROPRIATLEY. SPEECH IS GARBLED, BUT CAN BE UNDERSTOOD FOR THE MOST PART. PATIENT HAS RASH THAT COVERS ENTIRE BODY. IT IS BLANCHABLE AND PATIENT STATES THAT IT HAS BEEN GETTING BETTER. VSS, SEE FLOWSHEET FOR MORE DETAILS.
--- NOTE | 2016-09-20 21:05 | NUR ---
PATIENT IS NOW VERY LETHARGIC AND AWAKENS TO DEEP STIMULI. WAS TOLD DURING REPORT THAT THIS IS HOW PATIENT HAS BEEN FOR THE MAJORITY OF THE DAY. VSS, RESPERATIONS EVEN AND NON-LABORED.
[2016-09-20 22:57] LABS: CREATININE - URINE 32.5 mg/dL (30-125); PRO/CRE RATIO URINE 0.9 mg/g; PROTEIN - URINE 28.4 mg/dL (0.0-11.9)
--- NOTE | 2016-09-20 23:05 | NUR ---
REASSESSMENT COMPLETE, NO CHANGES AT THIS TIME.
[2016-09-20 23:08] LABS: APPEARANCE HAZY (CLEAR); BILIRUBIN NEGATIVE (NEGATIVE); COLOR YELLOW (YELLOW); GLUCOSE 1000 mg/dL (NEGATIVE); KETONE SMALL mg/dL (NEGATIVE); LEUKOCYTE ESTERASE NEGATIVE (NEGATIVE); NITRITE NEGATIVE (NEGATIVE); PROTEIN NEGATIVE (NEGATIVE); SPECIFIC GRAVITY 1.015 (1.005-1.020); UROBILINOGEN NORMAL (NORMAL)
[2016-09-20 23:11] LABS: BACTERIA FEW /hpf (NONE SEEN); EPITHELIAL CELLS 0-5 /hpf (0-5); GRANULAR CAST 0-5 /lpf (NONE SEEN); RED CELLS - URINE 0-5 /hpf (0-5); WHITE CELLS - URINE 0-5 /hpf (0-5)
[2016-09-21] VITALS (45 sets, daily range): BP systolic 95–152; BP diastolic 63–99; Ht 165.1 cm; Wt 71.5 kg
--- NOTE | 2016-09-21 01:00 | NUR ---
PATIENT IS RESTING WITH EYES CLOSED. VSS, RR EVEN AND NON-LABORED. WILL CONTINUE TO MONITOR.
--- NOTE | 2016-09-21 03:05 | NUR ---
REASSESSMENT COMPLETE. NO CHANGES AT THIS TIME. VSS.
[2016-09-21 04:54] LABS: BASOPHILS 0.1 % (0.0-2.0); EOSINOPHILS 0.1 % (0-7); HEMATOCRIT 36.7 % (42.0-54.0); HEMOGLOBIN 11.4 g/dL (13.5-17.5); IMMATURE GRANULOCYTES 0.8 % (0-5); LYMPHOCYTES 1.6 % (15-50); MCH 28.6 pg (26.0-34.0); MCHC 31.1 g/dL (31.0-37.0); MCV 92.2 fL (80.0-100.0); MEAN PLATELET VOLUME 10.2 fL (7.4-10.4); MONOCYTES 2.3 % (2-11); NEUTROPHILS 95.1 % (40-80); PLATELET COUNT 280 10x3/uL (130-400); RBC 3.98 10x6/uL (4.20-6.10); RDW 16.4 % (11.5-14.5); WBC 15.4 10x3/uL (4.8-10.8)
--- NOTE | 2016-09-21 05:00 | NUR ---
PATIENT RESTING IN BED WITH EYES CLOSED, VSS.
[2016-09-21 05:07] LABS: ALBUMIN 1.8 g/dL (3.4-5.0); ANION GAP 14.7 mmol/L (8-16); BILIRUBIN - TOTAL 0.29 mg/dL (0.2-1.3); CALCIUM 8.9 mg/dL (8.5-10.1); CARBON DIOXIDE 24.4 mmol/L (21.0-32.0); MAGNESIUM - SERUM 2.3 mg/dL (1.8-2.4); PROTEIN - SERUM 6.1 g/dL (6.4-8.2)
[2016-09-21 05:10] LABS: CREATININE - SERUM 1.5 mg/dL (0.6-1.3); POTASSIUM - SERUM 3.1 mmol/L (3.5-5.1)
--- NOTE | 2016-09-21 07:00 | NUR ---
REC'D REPORT AND RESUMED CARE, O2 VIA NC AT 2L, SAT 94%, AWAKE AND ALERT WITH GARBLED SPEECH, LT UPPER ARM PICC WITH CVP CONNECTED TO, ZEROED, READING 16, D5NS INFUSING AT 125 CC/HR, RIGHT AND LEFT HANDS PIV'S SL, LEFT BKA, CARTER TO GRAVITY WITH CLEAR YELLOW DRAINAGE TO BAG, DENIES PAIN, ASSESSMENT COMPLETE PER FLOWSHEET, REPOSITIONED UP AND TO LEFT SIDE WITH PILLOW PROPPED TO BACK AND STUMP ELEVATED TO PILLOW, TRUNG LIGHT IN REACH, NO NEEDS AT THIS TIME
--- NOTE | 2016-09-21 07:35 | NUR ---
BREAKFAST TRAY TO BEDSIDE, INDEPENDENT WITH SET UP AND EATING
--- NOTE | 2016-09-21 09:00 | NUR ---
AM MEDS GIVEN PER MAR WITHOUT DIFFICULTY
--- NOTE | 2016-09-21 11:00 | NUR ---
NO ACUTE CHANGE FROM PREVIOUS ASSESSMENT, VSS, WATER TO BEDSIDE, CALL LIGHT IN REACH, NO OTHER NEEDS AT THIS TIME
--- NOTE | 2016-09-21 12:00 | NUR ---
FAMILY AT BEDSIDE, STATUS UPDATED, VOICES NO NEEDW AT THIS TIME
--- NOTE | 2016-09-21 13:35 | NUR ---
KCL 10 MEQ INITIATED AT 100 CC/HR
--- NOTE | 2016-09-21 15:00 | NUR ---
ASSESSMENT COMPLETE, AWAKE AND ALERT, VSS, DENIES PAIN, NO AUCTE CHANGE FROM PREVIOUS, NO VISITORS AT THIS TIME
[2016-09-21 16:15] LABS: SPE - A/G RATIO 0.7 (0.7-1.7); SPE - ALBUMIN 1.7 g/dL (2.9-4.4); SPE - ALPHA-1 GLOBULIN 0.4 g/dL (0.0-0.4); SPE - BETA GLOBULIN 0.7 g/dL (0.7-1.3); SPE - GAMMA GLOBULIN 0.5 g/dL (0.4-1.8); SPE - M-SPIKE Not Observed g/dL (Not Observed); SPE - TOTAL PROTEIN 4.3 g/dL (6.0-8.5)
--- NOTE | 2016-09-21 17:10 | NUR ---
DINNER TRAY TO BEDSIDE, ASSIST WITH SET UP INDEPENDENT WITH EATING
--- NOTE | 2016-09-21 18:00 | NUR ---
NO VISITORS AT THIS TIME, VSS, AWAKE WATCHING TV, DENIES PAIN, NO NEEDS AT THIS TIME
--- NOTE | 2016-09-21 19:15 | NUR ---
SHIFT ASSESSMENT COMPLETE. PATIENT RESTING IN BED WATCHING TV. CONFUSED TO TIME BUT ALERT TO PERSON, PLACE, AND SITUATION. VSS, EXPIRATORY WHEEZE AUDIBLE WITH LUNG SOUNDS. S1S2 NOTED. RASH COVERING ENTIRE BODY, HAS NOT WORSENED. ABDOMEN IS DISTENDED AND FIRM TO PALPATION. PT DENIES TENDERNESS. CARTER DRAINING CLEAR YELLOW URINE. SEE ASSESSMENT FLOWSHEET FOR MORE DETAILS.
--- NOTE | 2016-09-21 21:05 | NUR ---
MEDS GIVEN, PT DENIES NEED AT THIS TIME.
[2016-09-21 21:07] LABS: ANION GAP 10.7 mmol/L (8-16); CARBON DIOXIDE 27.1 mmol/L (21.0-32.0)
[2016-09-21 21:08] LABS: POTASSIUM - SERUM 2.8 mmol/L (3.5-5.1)
--- NOTE | 2016-09-21 23:05 | NUR ---
REASSESSMENT COMPLETE. NO CHANGES AT THIS TIME. PT DENIES NEED. WILL CONTINUE TO MONITOR.
[2016-09-22] VITALS (24 sets, daily range): BP systolic 89–130; BP diastolic 57–93
--- NOTE | 2016-09-22 01:00 | NUR ---
PATIENT REPORTS ITCHING AROUND HIS STOMACH WHERE RASH IS. PRN BENADRYL GIVEN, WILL CONTINUE TO MONITOR.
--- NOTE | 2016-09-22 03:05 | NUR ---
REASSESSMENT COMPLETE AT THIS TIME. NO ACUTE CHANGES. VSS, WILL CONTINUE TO MONITOR.
--- NOTE | 2016-09-22 05:05 | NUR ---
PATIENT RESTING WITH EYES CLOSED, VSS, RR EVEN AND NON-LABORED.
[2016-09-22 05:28] LABS: BASOPHILS 0 % (0.0-2.0); EOSINOPHILS 0 % (0-7); HEMATOCRIT 30.9 % (42.0-54.0); HEMOGLOBIN 9.8 g/dL (13.5-17.5); IMMATURE GRANULOCYTES 0.5 % (0-5); LYMPHOCYTES 1.8 % (15-50); MCH 28.8 pg (26.0-34.0); MCHC 31.7 g/dL (31.0-37.0); MCV 90.9 fL (80.0-100.0); MEAN PLATELET VOLUME 10.2 fL (7.4-10.4); MONOCYTES 2.5 % (2-11); NEUTROPHILS 95.2 % (40-80); PLATELET COUNT 256 10x3/uL (130-400); RDW 16.3 % (11.5-14.5); WBC 14.6 10x3/uL (4.8-10.8)
[2016-09-22 05:53] LABS: ALBUMIN 1.8 g/dL (3.4-5.0); ALKALINE PHOSPHATASE 69 U/L (46-116); ALT (SGPT) 26 U/L (10-68); BILIRUBIN - TOTAL 0.25 mg/dL (0.2-1.3); CALCIUM 8.5 mg/dL (8.5-10.1); CHLORIDE - SERUM 104 mmol/L (98-107); MAGNESIUM - SERUM 1.9 mg/dL (1.8-2.4); POTASSIUM - SERUM 3.2 mmol/L (3.5-5.1); PROTEIN - SERUM 5.5 g/dL (6.4-8.2); SODIUM 137 mmol/L (136-145); VANCOMYCIN - RANDOM 7.5 ug/mL (10.0-20.0); eGFR NON AFRICAN AMERICAN 79 mL/min (90-120)
[2016-09-22 06:01] LABS: CALC OSMOLALITY 288 mosm/kg (275-300); GLUCOSE 310 mg/dL (74-106); UREA NITROGEN 20 mg/dL (7-18)
--- NOTE | 2016-09-22 08:03 | NUR ---
SITTING UP IN BED WATCHING TV AT THIS TIME. NO ACUTE DISTRESS NOTED. NOTED LOW POTASSIUM LEVEL OF 3.2 THIS AM. ELECTROLYTE PROTOCOL IN ACTION AT THIS TIME. PT RECIEVING REPLACEMENT PER PROTOCOL. WILL CONTINUE PLAN OF CARE.
--- NOTE | 2016-09-22 08:37 | NUR ---
PT REFUSED BREAKFAST TRAY THIS AM. WAS ABLE TO HAVE PT DRINK ORANGE JUICE WITH AM MEDS. WILL OFFER SNACKS. PT STATED HE JUST WANTED TO REST. WILL CONTINUE PLAN FO CARE.
--- NOTE | 2016-09-22 09:35 | NUR ---
NOTED PT HAS FIRM ABDOMINAL DISTENTION. RENAL HADOOP ARCHITECT NOTIFIED. PT DOES HAVE BOWEL SOUNDS, HYPOACTIVE X 4. NO NEW ORDERS AT THIS TIME. WILL CONTINUE PLAN OF CARE.
--- NOTE | 2016-09-22 11:41 | NUR ---
LYINGIN BED RESTING AT THIS TIME. AWAKENS EASILY WHEN STAFF STATES PT NAME. NO ACUTE DISTRESS NOTED. WILL CONTINUE PLAN OF CARE.
--- NOTE | 2016-09-22 14:31 | NUR ---
NGT PLACED AT THIS TIME PER ORDERS. NOTED SUCTION TO BE BROWN IN COLOR WITH CHUNKS. PLACEMENT VERIFIED VIA AUSCULATION. KUB ORDERED FOR PT ABDOMINAL DISTENTION WITH TIGHTNESS WELL KUB FROM YESTERDAY INDICATING POSSIBLE ILEUS. SURGERY ALSO CONSULTED AT THIS TIME. PAGED DR PAULA OFFICE, STATED DR REYNA IS SENIOR PROCUREMENT MANAGER FOR TODAY. OFFICE STATED THEY WOULD PAGE PHYSICIAN. WAITING FOR CALLBACK.
--- NOTE | 2016-09-22 14:38 | NUR ---
SPOKE WITH DR REYNA IN RELATION TO CONSULT. NOTED DR REYNA ASKED TO BE NOTIFIED OF KUB RESULTS FROM TODAY AND TO CONTINUE WITH NGT TO SUCTION. WILL CONTINUE PLAN OF CARE.
--- NOTE | 2016-09-22 16:08 | NUR ---
NOTED PT HAS BEEN RECIEVING ON BOTH HUMULIN AND HUMALOG SLIDING SCALE INSULINS ACHS. DR FLORES PAGED AT THIS TIME TO VERIFY ORDERS.
--- NOTE | 2016-09-22 16:18 | NUR ---
LYING IN BED RESTING AT THIS TIME, EYES CLOSED. AWAKENS EASILY WHEN STAFF STATES PT NAME. NO ACUTE DISTRESS NOTED. WILL CONTINUE PLAN FO CARE.
--- NOTE | 2016-09-22 17:53 | NUR ---
RESTING. NO ACUTE DISTRESS NOTED. AWAKENS WHEN STAFF STATES PT NAME. ALSO NOTED SPOKE WITH DR BEAR ABOUT SLIDING SCALE ORDERS. DR BEAR PLACED NEW ORDERS. WILL CONTINUE PLAN OF CARE.
--- NOTE | 2016-09-22 19:10 | NUR ---
ASSESSMENT COMPLETE. PATIENT RESTING IN BED WITH EYES CLOSED. CONFUSED TO TIME. NGT IN RIGHT NARE HOOKED TO LIS, S1S2 NOTED WITH NORMAL SINUS ON MONITOR. RR SHALLOW WITH EXPIRATORY WHEEZES. ABDOMEN IS DISTENDED, TIGHT, AND FIRM. PATIENT COMPLAINS OF TENDERNESS WHEN PALPATED. CARTER DRAINING CLEAR YELLOW URINE. CARTER CARE DONE AT THIS TIME. PICC LINE IN UPPER LEFT ARM IS PATENT, C/D/I. RED RASH STILL COVERS ENTIRE BODY. PT DENIES ITCHING. VSS, WILL CONTINUE TO MONITOR.
--- NOTE | 2016-09-22 21:00 | NUR ---
RIVETER PORTABLE MACHINE IN ROOM AT THIS TIME. PT DENIES NEED.
--- NOTE | 2016-09-22 23:05 | NUR ---
REASSESSMENT COMPLETE. NO ACUTE CHANGES.
[2016-09-23] VITALS (21 sets, daily range): BP systolic 93–121; BP diastolic 60–81
--- NOTE | 2016-09-23 01:00 | NUR ---
PATIENT RESTING IN BED WITH EYES CLOSED. VSS.
--- NOTE | 2016-09-23 03:10 | NUR ---
REASSESSMENT COMPLETE. NO ACUTE CHANGES. PATIENT DENIES NEED. ORAL CARE GIVEN AT THIS TIME.
--- NOTE | 2016-09-23 05:00 | NUR ---
VSS, PATIENT REPOSITIONED FOR COMFORT.
[2016-09-23 05:35] LABS: BASOPHILS 0 % (0.0-2.0); EOSINOPHILS 0 % (0-7); HEMATOCRIT 29.9 % (42.0-54.0); HEMOGLOBIN 9.4 g/dL (13.5-17.5); IMMATURE GRANULOCYTES 0.6 % (0-5); LYMPHOCYTES 2.4 % (15-50); MCH 28.5 pg (26.0-34.0); MCHC 31.4 g/dL (31.0-37.0); MCV 90.6 fL (80.0-100.0); MEAN PLATELET VOLUME 10.2 fL (7.4-10.4); MONOCYTES 2.8 % (2-11); NEUTROPHILS 94.2 % (40-80); PLATELET COUNT 282 10x3/uL (130-400); RDW 16.4 % (11.5-14.5); WBC 15.1 10x3/uL (4.8-10.8)
[2016-09-23 06:10] LABS: ALBUMIN 1.8 g/dL (3.4-5.0); ALKALINE PHOSPHATASE 65 U/L (46-116); ALT (SGPT) 24 U/L (10-68); CALC OSMOLALITY 286 mosm/kg (275-300); CARBON DIOXIDE 25.8 mmol/L (21.0-32.0); CHLORIDE - SERUM 107 mmol/L (98-107); CREATININE - SERUM 0.9 mg/dL (0.6-1.3); MAGNESIUM - SERUM 1.7 mg/dL (1.8-2.4); POTASSIUM - SERUM 3.7 mmol/L (3.5-5.1); PROTEIN - SERUM 5.3 g/dL (6.4-8.2); SODIUM 140 mmol/L (136-145); UREA NITROGEN 17 mg/dL (7-18); eGFR NON AFRICAN AMERICAN 89 mL/min (90-120)
[2016-09-23 06:11] LABS: GLUCOSE 209 mg/dL (74-106)
[2016-09-23 10:50] LABS: AMYLASE - SERUM 28 U/L (25-115); LIPASE 89 U/L (73-393)
--- NOTE | 2016-09-23 12:21 | CN ---
PATIENT NAME:YIN BERG MEDICAL RECORD: [id number] : 47 LOCATION:[facility] ADMIT DATE: 09/20/16 ACCOUNT: [id number] CONSULTING PHYSICIAN: MONA REYNA MD REFERRING PHYSICIAN: ISRAEL BEAR MD DATE OF CONSULTATION: 09/23/2016 Surgical Consultation REASON FOR CONSULTATION: Abdominal pain. HISTORY OF PRESENT ILLNESS: Mr. Berg is a 70-year-old male who was transferred from the [facility] care unit downstairs with a systolic blood pressure in the 70s. He is weak and lethargic. He was having a skin rash. His abdomen was markedly distended. The patient is awake now. He is difficult to understand. He is confused. His speech is garbled. All history was obtained through chart review and discussion with his RN. REVIEW OF SYSTEMS: Unobtainable at present secondary to patient factors. PAST MEDICAL HISTORY: COPD, recurrent pneumonia, respiratory failure, diabetes, hyperlipidemia, vascular disease, hypertension, dysphagia, DVT, anxiety and psychological disorder. PAST SURGICAL HISTORY: Left BKA, cystoscopy, uteroscopy, stent placement, retrograde pyelogram. He has multiple stents noted on the previous CT of the abdomen and pelvis in the iliac vessels. ALLERGIES: LEVAQUIN, PENICILLIN AND SULFA. MEDICATIONS: Medications in [facility] were reviewed. SOCIAL HISTORY: He is an ex-smoker, ex-drinker,. FAMILY HISTORY: Significant for cardiovascular and lung disease. PHYSICAL EXAMINATION: VITAL SIGNS: A 98.2 temperature, heart rate 96, respirations 20, blood pressure 104/70, and saturating 90% on 2 liters nasal cannula. EYES: Extraocular muscles are intact. His conjunctivae are pale. EAR, NOSE, AND THROAT: Poor dentition. PULMONARY: He has bilateral crackles. CARDIOVASCULAR: Normal sinus rhythm. No murmur. ABDOMEN: Firm, markedly distended, tympanitic, hypoactive bowel sounds. No palpable hernia defects. SKIN: He has an erythematous rash from head to toe. EXTREMITIES: Left BKA. No edema. LABORATORY DATA: All laboratory data reviewed in [facility]. IMAGING: Abdominal x-ray from the and , both reviewed, which revealed severe ileus. CT of the abdomen from February 2016 reviewed. IMPRESSION: A 70-year-old male with septic shock, unknown etiology, skin rash, chronic obstructive disease exacerbation, lactic acidosis, leukocytosis, acute CONSULT REPORT [id number] YIN BERG renal failure and ileus. PLAN: Continue broad-spectrum IV antibiotics. Follow up cultures. Continue IV fluid resuscitation. The patient received a short course of vasopressors. The patient is being treated with high dose steroids for his chronic obstructive disease exacerbation. Monitor creatinine and urine output. Continue IV fluid resuscitation. Nephrology following. Ileus is likely secondary to his septic process. Continue NG tube to low intermittent wall suction. We will order a CT of the abdomen and pelvis. TRANSINT:[id number] Voice Confirmation ID: [id number] DOCUMENT ID: [id number] MONA REYNA MD at 1221 CC: [id number] DICTATION DATE: 09/23/16 1008 ONCOLOGY PHYSICIAN: 09/23/16 1031 ADM IN [place] [id number] [place] [id number]
--- NOTE | 2016-09-23 18:33 | NUR ---
1800 SOAP SUDS ENEMA GIVEN LARGE ANOUNT OF DARK BROWN WATER RETURNED, SOME SMALL AMOUNT OF FORMED FECES. FOUL SMELLING. STOMAH NOT A FIRM IT WAS REMAINS DISTENDED.
--- NOTE | 2016-09-23 18:50 | NUR ---
PAGED DR MUELLER AT [phone] [facility] RETURN CALL PASSED ON TO NEXT NURSE
--- NOTE | 2016-09-23 19:00 | NUR ---
REPORT RECEIVED AND ASSESSMENT COMPLETED. SEE ASSESSMENT FOR FULL DETAILS. PT ABD DISTENDED AND FIRM. HYPOACTIVE BOWEL SOUNDS. 2+ EDEMA IN UPPER EXTREMETIES. LEFT BKA. SKIN FLUSHED. VSS. PT AWAKE AND ALERT. VSS. WILL CONTINUE TO MONITOR.
--- NOTE | 2016-09-23 22:08 | NUR ---
2100 MEDS GIVEN IN 2100 HOUR, FSBS 146. HELD HUMALOG PER SLIDING SCALE. LONG ACTING LINSULIN GIVEN PER ORDERS. VSS. WILL MONITOR.
--- NOTE | 2016-09-23 23:00 | NUR ---
REASSESSMENT COMPLETED. SEE ASSESSMENT FOR FULL DETAILS. EXPLAINED NPO STATUS TO PT AFTER HE HAD ASKED TO HAVE SOME WATER. NO OTHER CHANGES AT THIS TIME. VSS. WILL MONITOR.
[2016-09-24] VITALS (23 sets, daily range): BP systolic 96–124; BP diastolic 63–78
--- NOTE | 2016-09-24 01:00 | NUR ---
DISCUSSED NPO STATUS WITH PT. NO OTHER CHANGES TO REPORT AT THIS TIME.
--- NOTE | 2016-09-24 03:00 | NUR ---
REASSESSMENT COMPLETED. SEE FLOWSHEET FOR DETAILS. NO OTHER CHANGES AT THIS TIME.
[2016-09-24 04:25] LABS: BASOPHILS 0.1 % (0.0-2.0); EOSINOPHILS 0.1 % (0-7); HEMATOCRIT 26.3 % (42.0-54.0); HEMOGLOBIN 8.1 g/dL (13.5-17.5); MCH 28.6 pg (26.0-34.0); MCHC 30.8 g/dL (31.0-37.0); MCV 92.9 fL (80.0-100.0); MONOCYTES 3.8 % (2-11); PLATELET COUNT 254 10x3/uL (130-400); RBC 2.83 10x6/uL (4.20-6.10); RDW 17.1 % (11.5-14.5); WBC 9.1 10x3/uL (4.8-10.8)
[2016-09-24 04:38] LABS: BILIRUBIN - TOTAL 0.27 mg/dL (0.2-1.3)
[2016-09-24 05:29] LABS: ALKALINE PHOSPHATASE 51 U/L (46-116); ALT (SGPT) 21 U/L (10-68); CALC OSMOLALITY 291 mosm/kg (275-300); CALCIUM 7.8 mg/dL (8.5-10.1); CARBON DIOXIDE 28.6 mmol/L (21.0-32.0); CHLORIDE - SERUM 110 mmol/L (98-107); CREATININE - SERUM 0.8 mg/dL (0.6-1.3); GLUCOSE 153 mg/dL (74-106); POTASSIUM - SERUM 3.9 mmol/L (3.5-5.1); PROTEIN - SERUM 4.7 g/dL (6.4-8.2); SODIUM 144 mmol/L (136-145); UREA NITROGEN 17 mg/dL (7-18); eGFR NON AFRICAN AMERICAN > 90 mL/min (90-120)
--- NOTE | 2016-09-24 05:29 | NUR ---
LORRI FROM LAB CALLED TO REPORT 498 GLUCOSE. RECHECKED WITH FSBS AND OBTAINED 148. REDRAW IN PROGRESS. AWAITING RESULTS.
[2016-09-24 05:30] LABS: ALBUMIN 2.1 g/dL (3.4-5.0)
--- NOTE | 2016-09-24 07:00 | NUR ---
REPORT RECEIVED. PT IN SEMIFOWLERS POSITION, EYES CLOSED. DOES OPEN EYES AND INTERACT WHEN SPOKEN TO. ASSESSMENT COMPLETED AT THIS TIME. NO NEEDS VOICED.
--- NOTE | 2016-09-24 09:08 | NUR ---
MEDS GIVEN PER ORDERS. PATIENT BECAME UPSET WHEN IT WAS EXPLAINED THAT WE HAD A SUPPOSITORY TO DO. HE SAID, OVER AND OVER, THAT HE TOLD THE DOCTOR IT DOESN'T WORK AND NEITHER DOES THE LITTLE PILL, AND HE IS NOT TAKING EITHER.
--- NOTE | 2016-09-24 09:14 | NUR ---
PATIENT IS REFUSING A BATH AT THIS TIME. WILL TRY AGAIN LATER.
--- NOTE | 2016-09-24 10:33 | NUR ---
Nutrition follow-up: Pt is now NPO due ot resolving ileus; abdomen still distended. NGT->LIS Wt: 166# Will need nutrition support if po diet not advanced within 24-[address] following.
--- NOTE | 2016-09-24 10:58 | NUR ---
OFFERED PATINET ENEMA'S THAT ARE ORDERED TO HELP HIM HAVE A BOWEL MOVEMENT. HE SWEARS THAT THEY WILL NOT WORK EITHER, AND REFUSES THEM AT THIS TIME.
--- NOTE | 2016-09-24 12:51 | NUR ---
PATIENT CONTINUES TO REFUSE BATH OR ENEMA. WHEN DR SIMPSON WAS HERE, HE ALSO PUSHED HER AWAY, REFUSING A COMPLETE ASSESSMENT. THIS NURSE HAS STILL NOT BEEN ABLE TO ASSESS THE PATIENTS BACKSIDE.
--- NOTE | 2016-09-24 17:07 | NUR ---
PATIENT CONTINUES TO REFUSE DULCOLAX, ENEMA'S, AND BATH. DR RUSSELL WAS HERE. SHE IS WHO SAW HIM OVER THE WEEKEND. SHE HAS TURNED CARE OVER TO DR PINTO. SHE SAID THAT THIS IS A NORMAL CYCLE FOR THE PATIENT, AND SHE WAS GOING TO LET DR PINTO TAKE CARE OF IT.
--- NOTE | 2016-09-24 18:46 | NUR ---
DR BEAR HERE. PATIENT HAS AGREED TO DO ENEMA'S THIS EVENING. SHE STATED THAT SHE IS ALSO GOING TO ORDER BLOOD FOR HIM SECONDARY TO [facility] 8.1. WILL PASS ALONG IN REPORT.
--- NOTE | 2016-09-24 19:15 | NUR ---
ASSESSMENT COMPLETE. S1S2. RR SHALLOW/SOB; INSPIRE/ WHEEZE NOTED BILATERALLY IN UPPER LOBES; DIMINISHED BILATERALLY IN LOWER LOBES. AAO. PERRLA. LEFT BKA. RADIAL PULSES PALPATED; RIGHT PEDAL PULSE PALPATED. PT HAS RED RASH/HIVES NOTED GENERALIZED ALL OVER BODY; DENIES ITCH.
--- NOTE | 2016-09-24 21:55 | NUR ---
FIRST OF TWO PRBC STARTED. VSS.
--- NOTE | 2016-09-24 23:00 | NUR ---
REASSESSMENT COMPLETE. NO CHANGES FROM PREVIOUS ASSESSMENT.
[2016-09-25] VITALS (24 sets, daily range): BP systolic 112–141; BP diastolic 63–82
--- NOTE | 2016-09-25 01:30 | NUR ---
2ND UNIT OF PRBC START. VSS.
--- NOTE | 2016-09-25 03:30 | NUR ---
ASSESSMENT COMPLETE. NO CHANGES FROM PREVIOUS ASSESSMENT.
[2016-09-25 05:07] LABS: BASOPHILS 0.1 % (0.0-2.0); EOSINOPHILS 1.7 % (0-7); HEMATOCRIT 33.5 % (42.0-54.0); HEMOGLOBIN 10.7 g/dL (13.5-17.5); IMMATURE GRANULOCYTES 3.6 % (0-5); LYMPHOCYTES 10.3 % (15-50); MCH 28.8 pg (26.0-34.0); MCHC 31.9 g/dL (31.0-37.0); MCV 90.3 fL (80.0-100.0); MEAN PLATELET VOLUME 9.8 fL (7.4-10.4); MONOCYTES 5.3 % (2-11); PLATELET COUNT 236 10x3/uL (130-400); RBC 3.71 10x6/uL (4.20-6.10); RDW 16.2 % (11.5-14.5); WBC 7.2 10x3/uL (4.8-10.8)
--- NOTE | 2016-09-25 05:20 | NUR ---
ENEMA COMPLETE PER ORDERS. 500ML SOAP JO WATER USED. FECAL MATTER EMPTIED WHEN WATER EMPTIED.
[2016-09-25 05:39] LABS: ALBUMIN 2.2 g/dL (3.4-5.0); ALKALINE PHOSPHATASE 45 U/L (46-116); ALT (SGPT) 18 U/L (10-68); CALC OSMOLALITY 279 mosm/kg (275-300); CALCIUM 7.4 mg/dL (8.5-10.1); CARBON DIOXIDE 29.1 mmol/L (21.0-32.0); CHLORIDE - SERUM 106 mmol/L (98-107); CREATININE - SERUM 0.8 mg/dL (0.6-1.3); GLUCOSE 175 mg/dL (74-106); MAGNESIUM - SERUM 1.7 mg/dL (1.8-2.4); PHOSPHOROUS 2.8 mg/dL (2.5-4.9); POTASSIUM - SERUM 3.8 mmol/L (3.5-5.1); PRE-ALBUMIN 15.9 mg/dL (18.0-35.7); SODIUM 138 mmol/L (136-145); eGFR NON AFRICAN AMERICAN > 90 mL/min (90-120)
[2016-09-25 05:42] LABS: UREA NITROGEN 12 mg/dL (7-18)
--- NOTE | 2016-09-25 06:30 | NUR ---
PT BLOOD SUGAR 40. RECHECKED 35. ADM DEXTROSE PER PROTOCOL. PT LETHARGIC; AROUSES AND ANSWERS QUESTIONS APPROPRIATELY.
--- NOTE | 2016-09-25 06:43 | NUR ---
REPORT RECEIVED. PATIENT IN SEMIFOWLERS POSITION. ASSESSMENT COMPLETED. NO COMPLAINTS VOICED.
--- NOTE | 2016-09-25 06:49 | NUR ---
BLOOD SUGAR 156.
--- NOTE | 2016-09-25 11:26 | NUR ---
MEDS GIVEN PER EMAR. NO NEEDS VOICED BY PATIENT AT THIS TIME.
[2016-09-25 12:16] LABS: UPE RAND - ALBUMIN 24.2 % (()); UPE RAND - ALPHA 1 GLOBULIN 4.3 % (()); UPE RAND - ALPHA 2 GLOBULIN 22.4 % (()); UPE RAND - BETA GLOBULIN 22.8 % (()); UPE RAND - GAMMA GLOBULIN 26.4 % (())
--- NOTE | 2016-09-25 13:06 | NUR ---
PATIENT UPSET ABOUT NOT BEING ABLE TO HAVE FOOD. HE IS GETTING TO THE POINT HE WAS YESTERDAY WITH THIS NURSE WHERE HE IS NOT ALLOWING MUCH TO BE DONE. WILL SEE HOW THE REST OF THE DAY GOES.
--- NOTE | 2016-09-25 16:51 | NUR ---
DR BEAR WAS HERE. SHE TRIED TO TALK THE PATIENT INTO ANOTHER ENEMA. UNLIKE YESTERDAY, SHE WAS NOT SUCESSFUL. PATIENT REFUSES ENEMA FOR HER ALSO.
--- NOTE | 2016-09-25 16:53 | NUR ---
PATIENT RESIDENTIAL INSTRUCTOR LIGHT, HAS CONSENTED TO HAVING ENEMA'S DONE NOW. WILL GET SUPPLIES TOGETHER AND ADMINISTER.
--- NOTE | 2016-09-25 17:15 | NUR ---
PATIENT WAS GIVEN A TOTAL OF 1,500 CC OF SOAP SUDS ENEMA STOPPING EVERY 500CC FOR RETURN. FIRST TIME THERE WERE A COUPLE CHUNKS OF STOOL. THE SECOND TIME THERE WAS JUST SOME PALE MUDDY WATER. THE THIRD RETURN WAS CLEAR WATER. AT THIS TIME WILL STOP. MAYBE REPEAT ENEMA IN A LITTLE BIT.
--- NOTE | 2016-09-25 18:50 | NUR ---
RECTAL TUBE PLACED PER ORDERS. PATIENT TOLERATED WELL. HE WAS HOWEVER UPSET, HE THOUGHT THE TUBE WOULD GO IN AND THEN COME BACK OUT. THIS NURSE IS UNSURE IF THE TUBE WILL STAY IN THROUGH THE NIGHT, BUT THE PATIENT HAS AGREED TO LEAVE IT IN FOR NOW.
--- NOTE | 2016-09-25 19:30 | NUR ---
ASSESSMENT COMPLETE. S1S2. RR WHEEZE ON IN UPPER LOBES; DIMINISHED BILATERALLY IN LOWER LOBES. CARTER AND RECTAL TUBE IN PLACE. NGT TO LIS. GENERALIZED RASH ALL OVER BODY. PT DENIES PAIN OR ITCHING. AAO. PERRLA. PT VERBAL ABOUT WANTING TO EAT AND HAVE NGT OUT. VSS.
--- NOTE | 2016-09-25 21:30 | NUR ---
PT RESTING; EYES CLOSED. VSS. NO DISTRESS NOTED. CALL LIGHT IN REACH. WILL CONTINUE TO MONITOR.
--- NOTE | 2016-09-25 22:45 | NUR ---
REASSESSMENT COMPLETE. NO CHANGES FROM PREVIOUS ASSESSMENT. WILL CONTINUE TO MONITOR.
[2016-09-26] VITALS (13 sets, daily range): BP systolic 97–133; BP diastolic 51–80
--- NOTE | 2016-09-26 01:15 | NUR ---
PT RESTING; EYES CLOSED. VSS. NO DISTRESS NOTED. CALL LIGHT IN REACH. WILL CONTINUE TO MONITOR.
--- NOTE | 2016-09-26 03:30 | NUR ---
REASSESSMENT COMPLETE. NO CHANGES FROM PREVIOUS ASSESSMENT. CALL LIGHT IN REACH. WILL CONTINUE TO MONITOR.
[2016-09-26 04:31] LABS: BASOPHILS 0.2 % (0.0-2.0); EOSINOPHILS 0 % (0-7); HEMATOCRIT 36.3 % (42.0-54.0); HEMOGLOBIN 11.7 g/dL (13.5-17.5); IMMATURE GRANULOCYTES 3.8 % (0-5); LYMPHOCYTES 5.5 % (15-50); MCH 28.8 pg (26.0-34.0); MCHC 32.2 g/dL (31.0-37.0); MCV 89.4 fL (80.0-100.0); MEAN PLATELET VOLUME 9.9 fL (7.4-10.4); MONOCYTES 2.9 % (2-11); NEUTROPHILS 87.6 % (40-80); PLATELET COUNT 246 10x3/uL (130-400); RBC 4.06 10x6/uL (4.20-6.10); RDW 16.8 % (11.5-14.5); WBC 6.1 10x3/uL (4.8-10.8)
--- NOTE | 2016-09-26 06:33 | NUR ---
PT C/O ABOUT HAVING IN NGT. STATED "IT BETTER BE OUT TODAY OR I'M GOING TO TAKE IT OUT MYSELF." WILL PASS ON INFORMATION TO NEXT SHIFT
[2016-09-26 06:39] LABS: CALCIUM 8.3 mg/dL (8.5-10.1); CARBON DIOXIDE 26.9 mmol/L (21.0-32.0); CHLORIDE - SERUM 101 mmol/L (98-107); CREATININE - SERUM 0.8 mg/dL (0.6-1.3); MAGNESIUM - SERUM 2.1 mg/dL (1.8-2.4); PHOSPHOROUS 3.4 mg/dL (2.5-4.9); SODIUM 136 mmol/L (136-145); eGFR NON AFRICAN AMERICAN > 90 mL/min (90-120)
[2016-09-26 06:40] LABS: CALC OSMOLALITY 282 mosm/kg (275-300); GLUCOSE 253 mg/dL (74-106); POTASSIUM - SERUM 4.6 mmol/L (3.5-5.1); UREA NITROGEN 17 mg/dL (7-18)
--- NOTE | 2016-09-26 07:16 | NUR ---
REPORT RECD PT CARE ASSUMED. PT IS ALERT AND ORIENTED TO PERSON AND SOME OF SITUATION. SPEECH IS GARBALED, DIFFICULT TO UNDERSTAND. S1S2 NOTED, SR PER CM. LUNG SOUNDS DIMINISHED IN ALL CEBALLOS, SOME EXP. WHEEZES NOTED. BOWELS SOUNDS HYPO ACTIVED X 4. PT HAS LEFT BKA. OTHER PPP. CARTER IN PLACE. VSS. WILL MONITOR.
--- NOTE | 2016-09-26 09:45 | NUR ---
NUTRITION MONITORING & EVAL CHART REVIEWED. PT REMAINS NPO WITH NG TUBE, RECTAL TUBE. NO CURRENT NUTRITION SUPPORT. RECOMMEND CONSIDER NUTRITION SUPPORT IF UNABLE TO START CLEAR LIQUIDS IN [address] FOLLOWING
--- NOTE | 2016-09-26 09:57 | NUR ---
RECIEVED PATIENT VIA BED WITH NURSES FROM ICU. PATIENT IS AWAKE, ALERT AND ORIENTED X'S 4. RESPIRATIONS EVELVATED, A RATE OF 24. PATIENT IS RECIEVING OXYGEN VIA NASAL CANNULA AT 2L/MIN. OXYGEN SATURATION 94%. PATIENT HAS AN NGT TO RIGHT NARE. RECTAL TUBE DRAINING TO GRAVIY. CARTER CATHETER DRAINING TO GRAVITY. PICC LINE DRESSING CLEAN, DRY AND INTACT, DATED 09/26/16. TURNED PATIENT TO HIS RIGHT SIDE POSTIONED WITH A PILLOW. EDUCATED PATIENT ON TURNING EVERY 2 HOURS. PATIENT VERBALIZED UNDERSTANDING. HOB 30 DEGREES. BED IN LOWEST POSITION, CALL LIGHT IN REACH. BED RAILS UP X'S 2.
--- NOTE | 2016-09-26 09:59 | NUR ---
REPORT GIVEN TO TYSHAWN QUEZADA. PT TRANSPORTED VIA STRETCHER BY DAMIEN.
--- NOTE | 2016-09-26 11:15 | NUR ---
INSTRUCTED BRAND ATTENDANT HOW TO PULL NGT. STUDENT D/C NGT, FOLLOWED ALL STEPS APPROPRIATELY. ICE WATER GIVEN TO PATIENT. PATIENT DENIES NEEDS.
--- NOTE | 2016-09-26 19:10 | NUR ---
BEDSIDE REPORT RECEIVED AND CARE OF PT ASSUMED. PT LYING IN SEMI CISNEROS'S POSITION WATCHING TV. O2 IN USE VIA NC AT 2L. CARTER CATHETER DRAINING TO GRAVITY WITH YELLOW URINE IN COLLECTION BAG. RECTAL TUBE PATENT WITH DARK COLORED STOOL IN TUBE AND BAG. LEFT PICC PATENT WITH D5 1/2 NS W/ 10 OF POTASSIUM INFUSING AT 75 ML / HR. WILL MONITOR CLOSELY FOR NEEDS.
--- NOTE | 2016-09-26 21:22 | NUR ---
HS MEDICATIONS GIVEN. FSBS 318 AT THIS CHECK REQUIRING COVERAGE PER SLIDING SCALE. WILL CONTINUE TO MONITOR FOR NEEDS.
[2016-09-27 01:00] VITALS: BP 111/66
[2016-09-27 05:00] VITALS: BP 121/61
--- NOTE | 2016-09-27 05:01 | NUR ---
ALL NEEDS MET DURING SHIFT. CONTINUE PLAN OF CARE.
--- NOTE | 2016-09-27 08:00 | NUR ---
PATIENT AWAKE, WITH CONFUSION. REPEATS SELF. CALL LIGHT WITHIN REACH. VOICES NO NEEDS AT THIS TIME.
[2016-09-27 08:11] VITALS: BP 122/64
--- NOTE | 2016-09-27 10:00 | NUR ---
DR. ELIAS INTO SEE PATIENT. PATIENT TOLD DR ELIAS TO LEAVE ROOM. HE DID NOT WANT HE HERE.
[2016-09-27 11:40] VITALS: BP 132/71
--- NOTE | 2016-09-27 12:00 | NUR ---
GLUCOSE LEVEL 199. TWO UNITS OF SLIDING SCALE INSULIN GIVEN
--- NOTE | 2016-09-27 12:32 | NUR ---
SLEEPING QUIETLY AT PRESENT DENIES ANY NEEDS AT THIS TIUME RESP EVEN AND UNLABORED AT PRESENT.
[2016-09-27 16:13] VITALS: BP 128/67
--- NOTE | 2016-09-27 17:00 | NUR ---
GLUCOSE LEVEL 368. TEN UNITS OF SLIDING SCALE INSULIN GIVEN. PATIENT REMAINS ON A CLEAR LIQUID DIET. REGUESTING SOLID FOODS. THIS NURSE REMAINS PATIENT ABOUT DIET
--- NOTE | 2016-09-27 19:12 | NUR ---
RECTAL TUBE REMOVED WITHOUT DIFFICULTY
--- NOTE | 2016-09-27 20:00 | NUR ---
ASSESSMENT PER FLOWSHEET. OLD LEFT BKA NOTED IV PATENT LEFT UPPER ARM PICC LINE OF D51/2NS W/10MEQ KCL INFUSING AT 75CC'S/HR. SITE CLEAR. O2 ON 2L/M PER NC NO DISTRESS.CARTER TO BEDSIDE DRAINAGE WITH JENIFER COLORED URIINE. OLD BLISTERS NOTED TO ARMS. PT CONTINUES TO YELL OUT AT STAFF DEMANDING SOLID FOODS. INFORMED PT OF FULL LIQUID DIET CONTINUES TO CURSE AT STAFF.
[2016-09-27 21:00] VITALS: BP 120/61
--- NOTE | 2016-09-27 21:30 | NUR ---
MEDS GIVEN PER MAR. AXIC=759. 6 UNITS HUMALOG INSULIN GIVEN PER S/S.
--- NOTE | 2016-09-27 22:15 | NUR ---
YELLING AND SCREAMING AT STAFF DEMANDING SOLID FOODS GIVEN APPLESAUCE PO PT STARTS TO SPIT IT OUT WANTS REAL SOLID FOODS.
--- NOTE | 2016-09-28 | NUR ---
EYES CLOSED RESPIRATIONS WITH EASE AND UNLABORED.
[2016-09-28 00:30] VITALS: BP 132/68
--- NOTE | 2016-09-28 03:00 | NUR ---
EYES CLOSED RESPIRATIONS WITH EASE AND UNLABORED.
[2016-09-28 05:00] VITALS: BP 128/66
--- NOTE | 2016-09-28 05:26 | NUR ---
MEDS GIVEN PER MAR.
[2016-09-28 08:10] VITALS: BP 114/62
--- NOTE | 2016-09-28 08:30 | NUR ---
SCHEDULED MEDICATIONS ADMINISTERED AT THIS TIME. PT ALERT AND ORIENTED X4 AND DENIES PAIN AT THIS TIME. LEFT UPPER ARM PICC LINE PATENT AND INFUSING PRESCRIBED FLUIDS @75 ML/HR. ASSESSMENT PERFORMED PER FLOWSHEET. LUNG SOUNDS DIMINISHED IN ALL LOBES BILATERALLY. OXYGEN ON 2L VIA NC. CALL LIGHT IN REACH, BED ALARM ON, SR X2 WITH BED IN LOWEST POSITION AND WHEELS LOCKED. WILL CONTINUE WITH PLAN OF CARE.
--- NOTE | 2016-09-28 11:37 | NUR ---
FSBS 307 AND 8 UNITS ADMINISTERED PER THE SLIDING SCALE. DENIES NEEDS. REQUESTING TO HAVE A REGULAR DIET AND I EXPLAINED TO PT THAT HE WOULD HAVE TO WAIT ON DR GARNER'S TO MAKE THAT DETERMINATION. PT VERBALIZED UNDERSTANDING. PT SCRATCHING LEFT WRIST AND CAUSED AN AREA TO BLEED. BANDAID APPLIED. CALL LIGHT IN REACH, SELF POSITIONS IN BED FOR COMFORT. WILL CONTINUE WITH PLAN OF CARE.
[2016-09-28 12:05] VITALS: BP 122/62
--- NOTE | 2016-09-28 13:25 | NUR ---
TOLERATED REGULAR DIET WITHOUT DIFFICULTY AT THIS TIME. DENIES NEEDS. CALL LIGHT IN REACH WITH BED ALARM ON. WILL CONTINUE WITH PLAN OF CARE.
--- NOTE | 2016-09-28 15:00 | NUR ---
CARTER CARE PROVIDED WITH CARTER CARE WIPES AT THIS TIME.
[2016-09-28 16:14] VITALS: BP 117/67
--- NOTE | 2016-09-28 17:50 | NUR ---
DENIES NEEDS AT THIS TIME. CALL LIGHT IN REACH, WILL CONTINUE WITH PLAN OF CARE.
[2016-09-28 19:00] VITALS: BP 136/73
[2016-09-28 23:49] LABS: BASOPHILS 0 % (0.0-2.0); EOSINOPHILS 0 % (0-7); HEMATOCRIT 36.6 % (42.0-54.0); HEMOGLOBIN 11.4 g/dL (13.5-17.5); LYMPHOCYTES 5.8 % (15-50); MCH 28.6 pg (26.0-34.0); MCHC 31.1 g/dL (31.0-37.0); MCV 91.7 fL (80.0-100.0); MEAN PLATELET VOLUME 9.6 fL (7.4-10.4); MONOCYTES 5.8 % (2-11); NEUTROPHILS 87.4 % (40-80); PLATELET COUNT 210 10x3/uL (130-400); RBC 3.99 10x6/uL (4.20-6.10); RDW 16.2 % (11.5-14.5); WBC 4.9 10x3/uL (4.8-10.8)
[2016-09-29 00:48] LABS: ALKALINE PHOSPHATASE 43 U/L (46-116); ALT (SGPT) 19 U/L (10-68); BILIRUBIN - TOTAL 0.28 mg/dL (0.2-1.3); CALC OSMOLALITY 287 mosm/kg (275-300); CALCIUM 8.3 mg/dL (8.5-10.1); CARBON DIOXIDE 33.8 mmol/L (21.0-32.0); CHLORIDE - SERUM 103 mmol/L (98-107); GLUCOSE 253 mg/dL (74-106); PROTEIN - SERUM 5.5 g/dL (6.4-8.2); SODIUM 140 mmol/L (136-145); UREA NITROGEN 13 mg/dL (7-18); eGFR NON AFRICAN AMERICAN 79 mL/min (90-120)
[2016-09-29 04:00] VITALS: BP 155/75
--- NOTE | 2016-09-29 04:02 | NUR ---
PT LAYING IN BED NO DISTRESS OBSERVED AT THIS TIME CALL LIGHT REACH SRX2 BED LOW AND LOCKED RESPERATIONS EVEN AND UNLABORED PT DENIES NEEDS OR WANTS AT THIS TIME WILL MONITOR
--- NOTE | 2016-09-29 08:16 | NUR ---
AROUSES TO VERBAL STIMULATION. NON VERBAL THIS AM BUT WILL NOD YES/NO ANSWERS . LUNGS HAVE CRACKLE AND WHEEZES THROUGHOUT LUNG CEBALLOS. PATIENT DENIES COUGH. WILL MONITOR. SKIN IS INTACT WITHOUT REDNESS BUT PEELING OF SUPERFICIAL SKIN NOTED GENERALIZED. THIS WAS REPORTED OLD. PICC TO LEFT UPPER ARM IS PATENT WITHOUT REDNESS AT INSERTION SITE. CARTER PATENT WITH CLEAR YELLOW URINE. REPOSITIONED IN BED FOR COMFORT. LEFT BKA NOTED WELL. REFUSED TO EAT AT THIS TIME.
[2016-09-29 08:55] VITALS: BP 121/55
[2016-09-29 10:00] LABS: BASOPHILS 0 % (0.0-2.0); EOSINOPHILS 0.2 % (0-7); HEMATOCRIT 37.7 % (42.0-54.0); HEMOGLOBIN 11.7 g/dL (13.5-17.5); LYMPHOCYTES 5.9 % (15-50); MCH 28.6 pg (26.0-34.0); MCV 92.2 fL (80.0-100.0); MEAN PLATELET VOLUME 9.4 fL (7.4-10.4); MONOCYTES 6.2 % (2-11); NEUTROPHILS 86.7 % (40-80); PLATELET COUNT 192 10x3/uL (130-400); RBC 4.09 10x6/uL (4.20-6.10); RDW 16.1 % (11.5-14.5); WBC 6.1 10x3/uL (4.8-10.8)
--- NOTE | 2016-09-29 10:00 | NUR ---
ATE MOST OF BREAKFAST WITH SET UP ASSISTANCE. DENIES NEEDS. TOOK AM MEDS WITHOUT DIFFICULTY.
[2016-09-29 10:12] LABS: CALC OSMOLALITY 290 mosm/kg (275-300); CALCIUM 8.3 mg/dL (8.5-10.1); CARBON DIOXIDE 34.2 mmol/L (21.0-32.0); CHLORIDE - SERUM 101 mmol/L (98-107); CREATININE - SERUM 0.9 mg/dL (0.6-1.3); POTASSIUM - SERUM 4.6 mmol/L (3.5-5.1); SODIUM 137 mmol/L (136-145); UREA NITROGEN 15 mg/dL (7-18); eGFR NON AFRICAN AMERICAN 89 mL/min (90-120)
[2016-09-29 10:14] LABS: GLUCOSE 383 mg/dL (74-106)
--- NOTE | 2016-09-29 12:00 | NUR ---
FSBS 214. GIVEN 4 UNITS HUMALOG SUBQ PER SS. LUNCH SERVED IN ROOM.
[2016-09-29 13:04] VITALS: BP 130/71
[2016-09-29] MEDS ORDERED: MAG-OX 400 MG400 MG PO (15:05)
[2016-09-29] MEDS ORDERED: LOVENOX40 MG/0.4 SC (15:05)
[2016-09-29] MEDS ORDERED: LACTINEX GRANUL1 PCK PO (15:05)
[2016-09-29] MEDS ORDERED: BROVANA15 MCG/2 M INH (15:05)
[2016-09-29] MEDS ORDERED: PREDNISONE20 MG PO (15:08)
[2016-09-29 16:03] VITALS: BP 133/77
--- NOTE | 2016-09-29 16:11 | NUR ---
SPOKE WITH CARMEN IN INTERMEDIATE. SHE STATED SHE HAD TALKED WITH JESSICA AND THEY FELT HE NEEDED TO BE REASSESSED PER DR. LOO WHO IS OUT UNTILL SATURDAY.
--- NOTE | 2016-09-29 16:30 | NUR ---
GIVEN BED BATH AND LINENS CHANGED PER STAFF. FSBS 346. GIVEN 8 UNITS HUMALOG SUBQ PER SS.
--- NOTE | 2016-09-29 18:11 | NUR ---
ATE ALL OF SUPPER PLUS A SANDWICH. STATED HE WAS SATISFIED AFTER THAT. DENIES NEEDS. NO CHANGES NOTED.
[2016-09-29 20:38] VITALS: BP 122/68
--- NOTE | 2016-09-29 23:35 | NUR ---
PT ASSESSMENT COMPELTED PT LAYING IN BED EYES CLOSED AND TV ON PT APPERS TO BE SLEEPING IVP TO LEFT UPPER ARM PICC INFUSING FLUIDS ORDERED RESPERATIONS EVNE AND UNLABORED CLEAR BILATERAL UPPER LOBES DIMINISHED LOWER LOBES BILATERAL PT ON 2LNC AND NO DISTRESS OBSERVED CALL LIGHT IN REACH SRX2 BED LOW AND LOCKED WILL MONITOR
[2016-09-30] VITALS: BP 129/72
[2016-09-30 04:00] VITALS: BP 144/73
[2016-09-30 04:16] LABS: BASOPHILS 0 % (0.0-2.0); EOSINOPHILS 0.1 % (0-7); HEMATOCRIT 38.7 % (42.0-54.0); HEMOGLOBIN 12.3 g/dL (13.5-17.5); IMMATURE GRANULOCYTES 0.9 % (0-5); LYMPHOCYTES 5.1 % (15-50); MCH 28.9 pg (26.0-34.0); MCHC 31.8 g/dL (31.0-37.0); MCV 91.1 fL (80.0-100.0); MEAN PLATELET VOLUME 9.4 fL (7.4-10.4); NEUTROPHILS 87.9 % (40-80); PLATELET COUNT 191 10x3/uL (130-400); RBC 4.25 10x6/uL (4.20-6.10); WBC 7.4 10x3/uL (4.8-10.8)
--- NOTE | 2016-09-30 04:16 | NUR ---
PT REPOSITIONED IN BED PT REQUESTING SANDWICH AND SPRIT PROVIDED TO PT AND LAB DRAW COMPLETED AND TAKEN TO LAB NO DISTRESS OBSERVED CALL LIGHT IN REACH SRX2 BED LOW AND LOCKED PT SITTING UP IN BED EATING SANDWICH AND RESPERATIONS EVEN AND UNLABORED WILL MONITOR
[2016-09-30 04:49] LABS: CALC OSMOLALITY 288 mosm/kg (275-300); CALCIUM 8.9 mg/dL (8.5-10.1); CARBON DIOXIDE 33.2 mmol/L (21.0-32.0); CHLORIDE - SERUM 99 mmol/L (98-107); GLUCOSE 255 mg/dL (74-106); POTASSIUM - SERUM 4.6 mmol/L (3.5-5.1); SODIUM 139 mmol/L (136-145); UREA NITROGEN 18 mg/dL (7-18); eGFR NON AFRICAN AMERICAN 79 mL/min (90-120)
--- NOTE | 2016-09-30 07:15 | NUR ---
LYING ON LEFT SIDE AT THIS TIME WITH EYES CLOSED AND RESPIRATIONS EVEN AND NON LABORED. OXYGEN TURNED OFF AT THIS TIME TO WEAN PATIENT PER ORDER. CARTER CATHETER PATENT AND DRAINING TO GRAVITY. BED IN LOWEST POSITION WITH WHEELS LOCKED AND SRX2. BED ALARM ON. CALL LIGHT IN REACH, WILL CONTINUE WITH PLAN OF CARE.
--- NOTE | 2016-09-30 08:57 | NUR ---
PT EATING BREAKFAST AT THIS TIME INDEPENDENTLY. ALERT AND ORIENTED X4. SCHEDULED MEDICATIONS ADMINISTERED AT THIS TIME AND TAKEN WITHOUT DIFFICULTY. DENIES PAIN. OXYGEN SATURATION 95% ON ROOM AIR. CALL LIGHT IN REACH, ASSESSMENT PERFORMED PER FLOWSHEET. WILL CONTINUE WITH PLAN OF CARE.
[2016-09-30 09:00] VITALS: BP 113/68
--- NOTE | 2016-09-30 10:50 | NUR ---
NO CHANGES IN INITIAL ASSESSMENT. PT SEEMS SLIGHTLY DEPRESSED IN MOOD D/T BEING IN THE HOSPITAL FOR SO LONG. PT IS READY TO RETURN TO FACILITY THAT HE WAS AT PRIOR TO HOSPITALIZATION.
[2016-09-30 12:45] VITALS: BP 112/68
--- NOTE | 2016-09-30 15:00 | NUR ---
PICC LINE D/C AT THIS TIME BY DAMIEN ROMEROBROOM MACHINE OPERATOR. CARTER CATHETER REMOVED WITH CATH TIP INTACT. PT AWARE OF DISCHARGE TO [facility].
--- NOTE | 2016-09-30 16:00 | NUR ---
REPORT CALLED TO DAMIEN SAWANT IN [facility]. TRANSFERRED PT TO ROOM 25 VIA PERSONAL WHEELCHAIR.
--- NOTE | 2016-10-05 12:39 | CN ---
PATIENT NAME:YIN CRUZ MEDICAL RECORD: [id number] : 47 LOCATION:[id number] ADMIT DATE: 09/20/16 ACCOUNT: [id number] CONSULTING PHYSICIAN: JIMY HARDWICK MD REFERRING PHYSICIAN: NAVYA MUNOZ MD DATE OF CONSULTATION: 09/20/2016 Pulmonary Consultation CONSULT REQUESTING PHYSICIAN: Navya Munoz MD REASON FOR CONSULTATION: Septic shock. HISTORY OF PRESENT ILLNESS: Mr. Cruz is a 70-year-old gentleman well known to me from previous hospitalization. The patient was in the adult psych unit downstairs, brought upstairs with systolic blood pressure in 70s. He is very weak and lethargic. He is also having a skin rash. The patient is awake, but he is not communicating much. The patient has a history of recurrent pneumonia in the past. REVIEW OF SYSTEMS: As in history of present illness. PAST MEDICAL HISTORY: 1. COPD. 2. History of asthma. 3. History of recurrent pneumonia. 4. History of respiratory failure in the past. 5. Diabetes mellitus type 2. 6. Hyperlipidemia. 7. Peripheral vascular disease. 8. History of hypertension. 9. History of dysphagia. 10. History of deep venous thrombosis. 11. History of anxiety and a psychological disorder. PAST SURGICAL HISTORY: 1. He has had kidney stone removal. 2. Left BKA. 3. History of cystoscopy. 4. History of uteroscopy with stent placement. 5. He has also retrograde pyelogram in the past. ALLERGIES: HE IS ALLERGIC TO LEVAQUIN, PENICILLIN, AND SULFA. PRESENT MEDICATIONS: On [employer] was reviewed. PERSONAL AND SOCIAL HISTORY: The patient is an ex-smoker. He was a drinker in the past. FAMILY HISTORY: Significant for cardiovascular and lung disease and diabetes in his parents. PHYSICAL EXAMINATION: GENERAL: Now, the patient is very weak and lethargic. VITAL SIGNS: The blood pressure is 70/53, pulse is 153, respiration is 30, CONSULT REPORT [id number] YIN CRUZ temperature 102.5, pulse ox is 95% on 3 liter nasal cannula. HEENT: Conjunctivae are pink, sclerae nonicteric. NECK: Supple. No JVD. CHEST: There are bilateral crackles, wheeze on forceful expiration. HEART: Rate and rhythm is regular, normal sound, no murmur. ABDOMEN: Soft, bowel sounds present. No hepatosplenomegaly. RECTAL: Deferred. SKIN: He has a red erythematous rash all over. EXTREMITIES: He has a left BKA. There is no pedal edema. CENTRAL NERVOUS SYSTEM: The patient is awake and alert, but he is not much communicative. LABORATORY DATA: CBC: The WBC is 12.2, hemoglobin 12.2, hematocrit 38.6, platelet count 255, neutrophils are 83.8%. Chemistry: Sodium is 135, potassium 4.3, BUN is 38, creatinine 2.1. ABG: The pH is 7.49, pCO2 is 34, pO2 is 55, bicarbonate is 26.1. The lactic acid level is 2.07. IMPRESSION: 1. Septic shock. The source is not known. The chest radiograph is pending, possible pneumonia. 2. Skin rash, most likely reaction to antibiotics. 3. Acute exacerbation of chronic obstructive pulmonary disease. 4. Leukocytosis. 5. Lactic acidosis. 6. Gastroesophageal reflux disease. 7. Fever of 102. 8. Systemic inflammatory response syndrome. 9. History of recurrent pneumonia. 10. Acute renal failure, most likely secondary to acute tubular necrosis. RECOMMENDATION: 1. Discussed in length with Dr. Cai. She is going to put him on antibiotic, methylprednisolone IV, albuterol and ipratropium nebulizer q.4 hourly, Brovana, budesonide nebulizer q.12 hourly. Check the blood cultures. Check the urine culture. 2. IV fluid bolus and we will continue the IV fluid IV. 3. We will follow labs and chest radiograph in the morning. 4. GERD precautions. Dr. Munoz, once again thanks for involving me in the care of Mr. Cruz. The critical care time is 40 minutes. TRANSINT:[id number] Voice Confirmation ID: [id number] DOCUMENT ID: [id number] JIMY HARDWICK MD at 1239 CC: NAVYA MUNOZ MD [id number] DICTATION DATE: 09/20/16 1022 MACHINE SHOP HELPER: 09/20/16 1110 DIS IN 09/30/16 [place] [address]
== END 2016-09-30 16:05 | disposition short-term general hospital (02) | DRG 871 ==
LOC: D.ICU 09:39 → D.MS 09:39
PROVIDERS: Internal Medicine Gastroenterology; Internal Medicine Nephrology; Internal Medicine Pulmonary Disease; Student in an Organized Health Care Education/Training Program; ADMIT Family Medicine
PROC: 02HV33Z Insertion of Infusion Device into Superior Vena Cava, Percutaneous Approach (ICD-10-PCS; principal; 2016-09-20)
DX: A41.9 Sepsis, unspecified organism (principal); R65.21 Severe sepsis with septic shock; N17.0 Acute kidney failure with tubular necrosis; G93.41 Metabolic encephalopathy; J69.0 Pneumonitis due to inhalation of food and vomit; J44.1 Chronic obstructive pulmonary disease with (acute) exacerbation; K56.7 Ileus, unspecified; J98.11 Atelectasis; E78.5 Hyperlipidemia, unspecified; I10 Essential (primary) hypertension; E11.9 Type 2 diabetes mellitus without complications; Z79.4 Long term (current) use of insulin; I73.9 Peripheral vascular disease, unspecified; F41.8 Other specified anxiety disorders; T50.905A Adverse effect of unspecified drugs, medicaments and biological substances, initial encounter; E87.6 Hypokalemia; D64.9 Anemia, unspecified; E55.9 Vitamin D deficiency, unspecified; K21.9 Gastro-esophageal reflux disease without esophagitis; F32.9 Major depressive disorder, single episode, unspecified; Z89.512 Acquired absence of left leg below knee; Z99.81 Dependence on supplemental oxygen; Z86.718 Personal history of other venous thrombosis and embolism; T36.1X5A Adverse effect of cephalosporins and other beta-lactam antibiotics, initial encounter; Y92.239 Unspecified place in hospital as the place of occurrence of the external cause

== ENCOUNTER 2016-09-30 16:30 | Inpatient (IN) | payer MEDICARE, MEDICAID ==
[~2016-09-30] VITALS: Ht 165.1 cm; Wt 71.2 kg
[~2016-09-30 16:30] MED LIST changes: +BROVANA15 MCG/2 M INH; +LACTINEX GRANUL1 PCK PO; +LOVENOX40 MG/0.4 SC; +MAG-OX 400 MG400 MG PO; +PREDNISONE20 MG PO
[2016-09-30 18:03] LABS: CHOL - HDL RATIO 3.2 ratio (2.3-4.9); LDL-HDL RATIO 1.5 ratio (1.5-3.5)
[2016-09-30 18:04] LABS: HEMOGLOBIN A1C 7.7 % (4.8-6.0)
[2016-09-30 18:27] VITALS: BP 97/57
[2016-09-30 19:30] VITALS: BP 162/88
--- NOTE | 2016-09-30 20:00 | NUR ---
PT IS ADMITTED TO DC FROM MED SURG. PT IS TRANSPORTED BY WHEEL CHAIR. PT IS ALERT AND ORIENTED TO SELF ONLY. PT IS WITH DRAWN AND QUIET. PT IS COOPERATIVE WITH STAFF. NO AGGRESSION NOTED. PT HAS NO TEETH. NO DENTURES PRESENT. PT HAS REDNESS ON BACK AND BUTTOCKS. SOME SHEARING NOTED ON BACK. PT'S SKIN IS PEELING, FLAKY, AND RED FROM ALLERGIC REACTION TO PREVIOUS ANTIBIOTIC. PT HAS LLE AMPUTEE. PROSTHESIS IS PRESENT. PT HAS DIMINISHED LUNG SOUND IN BILATERAL LOWER LOBES. PT IS VERY QUITE AND BARELY PARTICIPATES WITH ASSESSMENT. PT IS INCONTINENT OF BOWELS AT TIMES. CONTINENT OF URINE- USES A URINAL. REPORT RECEIVED FROM DAMIEN CHRISTENSENVOLLEYBALL REFEREE. PT'S VITALS AT TIME OF ADMISSION WAS 112/68, 98.8, 95 PULSE, RESP-20, AND O2 WAS AT 95%. PT HAS BEEN WEANED OFF O2 AND IS CURRENTLY ON ROOM AIR. HIS GOAL ON ROOM AIR IS AT 92% OR ABOVE. PT'S VITALS AT TIME OF SHIFT CHANGE WERE BP-97/57, PULSE-97, RESP-18,O2- 92%. ONCOMING STAFF NOTIFIED TO [facility] PT'S VITALS CLOSELY. PT IS ORIENTED TO SELF ONLY, DENIES SI/HI. NO AGGRESSION NOTED. PT DENIES DEPRESSION- DEPRESSION IS OBVIOUS. NO HALLUCINATIONS OR DELUSIONS ARE NOTED OR REPORTED. SAFETY MEASURES ARE IMPLEMENTED. WILL CONTINUE TO MONITOR AND CONTINUE WITH CURRENT PLAN OF CARE.
--- NOTE | 2016-09-30 20:02 | NUR ---
RECEIVED IN DAYROOM. LAYING ON SOFA WITH EYES CLOSED. RESPONDS TO VOICE. CALMA AND COOPERATIVE WITH CARE AND ASSESSMENT. TURNED ON HIS SIDE AND URINATED ON THE FLOOR . REDIRECTED AND REOIENTED FOR NEGATUIVE BEHAVIOR. CONTINUES TO LAY ON SOFA WITH EYES CLOSED. CONTINUE PLAN OF CARE
[2016-10-01 11:20] VITALS: BP 114/65
[2016-10-01 14:57] VITALS: Ht 165.1 cm; Wt 71.2 kg
--- NOTE | 2016-10-01 17:51 | NUR ---
Alert and oriented to name and place, cooperative with care. No aggression. Has rested quietly on sofa. Cooperative with unit milieu. Compliant with medications. Safety maintained. Continue with plan of care.
--- NOTE | 2016-10-01 19:50 | NUR ---
RECEIVED IN DAYROOM. LAYING ON SOFA WITH EYES CLOSED. RESPONDS TO VOICE. NOT SOCIALIZING WITH STAFF OR PEERS. CALM AND COOPERATIVE WITH CARE AND ASSESSMENT. ENCOURAGE TO EXPRESS NEEDS AND FEELINGS. CONTINUE PLAN OF CARE
[2016-10-01 20:37] VITALS: BP 89/49
--- NOTE | 2016-10-02 01:03 | PSY ---
PATIENT NAME:YIN CRUZ MEDICAL RECORD: [id number] : 47 LOCATION:[facility] ADMISSION DATE: 09/30/16 ACCOUNT: [id number] PSYCHIATRIC EVALUATION DATE OF EVALUATION: 10/01/16 IDENTIFYING DATA: A 70-year-old white male, who was originally admitted to [facility] between 09/07/2016 and 09/20/2016. He was transferred to the medical floor during the interim and was readmitted on 09/30/2016. 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 He also has a past history of depression. The patient had been showing extreme emotional lability and agitation and had become combative with a roommate prior to the original admission. During the initial hospital stay on [facility], the patient had been successfully treated with mood-stabilizing medication. He did undergo neuropsychological testing, the result of which indicated significant dementia. Behavior on the medical floor has been manageable. He had been admitted there with a temperature of 102.5 and hypotension, but has now stabilized medically. He is returned to [facility] prior to transfer back to the alf. PAST MEDICAL HISTORY: No interval change. FAMILY HISTORY: No interval change. SOCIAL HISTORY: No interval change. ALLERGIES: INCLUDE PENICILLINS AND SULFONAMIDE ANTIBIOTICS WELL AZITHROMYCIN. MEDICATIONS: At the time of transfer included Brovana updraft for COPD, albuterol for the same purpose, Lovenox, Coumadin, metoprolol, pravastatin, aspirin, Tegretol 200 mg twice a day, Pulmicort, Singulair, Dulcolax, Pepcid, insulin, prednisone 20 mg daily, vitamin D supplements and Lotrisone. MENTAL STATUS: On exam, the patient's mood is, for the most part, euthymic. Affect remains shallow. Speech is rather terse. Content of thought is negative for overt psychosis. The patient shows deficits in short-term recall and concentration as well as intermediate recall. ASSESSMENT: AXIS I: Alzheimer dementia with behavioral disturbance, depression with anxiety features by history. AXIS II: No diagnosis. AXIS III: Type 1 diabetes, hypertension, chronic obstructive pulmonary disease, deep venous thrombosis by history, below the knee amputation, vitamin D deficiency. AXIS IV: Moderate. AXIS V: 40. PLAN: 1. The patient is readmitted. 2. Medication will be maintained at current level. 3. Anticipate discharge quite soon. TRANSINT:[id number] Voice Confirmation ID: [id number] DOCUMENT ID: [id number] ALEXEI LOO III, MD at 0103 CC: [id number] DICTATION DATE: 10/01/16 1148 MACHINE STRAP BUCKLER: 10/01/16 1229 ADM IN [place] [id number] [place] [address]
[2016-10-02 14:08] VITALS: BP 108/57
[2016-10-02 14:24] LABS: INR 1.15 (0.85-1.17); PROTIME 14.6 SECONDS (11.6-15.0)
--- NOTE | 2016-10-02 16:16 | NUR ---
RECEIVED THIS AM SITTING IN WHEELCHAIR IN HALLWAY AT NURSES STATION.IS CALM AND COOPERATIVE MOST OF THE TIME BUT WHEN HE WANTS SOMETHING HE IS LOUD AND DEMANDING.URINATED ON COUCH THIS MORNING BECAUSE HE DID NOT HAVE A URINAL.INSTRUCTED TO CALL FOR HELP GETTING UP TO BATHROOM NEXT TIME.WILL CONTINUE WITH PLAN OF CARE,MONITOR FOR CHANGES AND SAFETY.
[2016-10-02 19:28] VITALS: BP 102/51
--- NOTE | 2016-10-02 23:10 | NUR ---
RECEIVED IN DAYROOM. SETTING QUIETLY IN RECLINER WITH PEERS AT HIS SIDE. NOT SOCIALIZING WITH PEERS. CALM AND COOPERATIVE WITH CARE AND ASSESSMENT. ENCOURAGE TO EXPRESS NEEDS. ECOURAGE TO ASSIST WITH THANSFERE. PM MEDS GIVEN ORDERED. RESTING EYES CLOSED AT THIS TIME. CONTINUE PLAN OF CARE
--- NOTE | 2016-10-03 05:47 | PN ---
PATIENT:YIN CRUZ MEDICAL RECORD: [id number] LOCATION:[facility] ADMISSION DATE: 09/30/16 PROGRESS NOTE DATE OF SERVICE: 10/02/2016 SUBJECTIVE: No new complaint. OBJECTIVE: The patient remains stable. We are awaiting finalization of assessment and approval from [facility]. The patient is tolerating medications well. On exam, mood is slightly irritable, affect is shallow, speech tends to be terse, content of thought is unchanged, sensorium is unchanged. ASSESSMENT: No change in diagnosis. PLAN: 1. Maintain current treatment plan. 2. We will discharge back to [facility] as soon as approval has been received. TRANSINT:[id number] Voice Confirmation ID: [id number] DOCUMENT ID: [id number] ALEXEI LOO III, MD at 0547 CC: [id number] DICTATION DATE: 10/02/16 1210 DATA WAREHOUSE ANALYST: 10/02/16 1226 [place] [address]
[2016-10-03 07:57] VITALS: BP 106/50
--- NOTE | 2016-10-03 09:30 | NUR ---
B) Patient has been [facility] like to [facility] [employer] at 11:30, patient is laying on the couch he has already started saying "I want to go home". Gus Presley explained to him that he does get to go today, he is happy. Patient is able to self propel and self transfer, but he is not using his prosthesis and walking. His lungs have wheezes. He is laying around. I) Provide prescribed meds and continue discharge plan. R) Patient is compliant with meds and we are waiting for his belongings from [facility]. P) Continue plan of care.
[2016-10-03] MEDS ORDERED: FEXOFENADINE HC60 MG PO (10:19)
--- NOTE | 2016-10-03 10:36 | NUR ---
Called report to [facility], faxed all paperwork to [facility]. D/C orders and meds.
--- NOTE | 2016-10-03 12:03 | NUR ---
[facility] here to p/u patient. Marilu Gallagher went to get belongings from [facility].
--- NOTE | 2016-10-03 12:30 | NUR ---
Belongings from [facility] here, patient did have lunch, He is in his w/c with his oxygen and tubing, all belongings sent with patient, hard copy provided to snaker tractor driver.
--- NOTE | 2016-10-03 17:05 | DS ---
PATIENT:YIN CRUZ :47 MEDICAL RECORD: [id number] DISCHARGE SUMMARY ADMISSION DATE: 09/30/16 DISCHARGE DATE: 10/03/16 DATE OF READMISSION: 10/01/2016 DATE OF DISCHARGE: 10/03/2016 HISTORY OF PRESENT ILLNESS: A 70-year-old white male originally admitted to [facility] between 09/07/2016 and 09/20/2016. Past history of anxiety disorder with poor impulse control as well as dementia of Alzheimer type, which was confirmed on neuropsychological testing. The patient had been showing agitation and poor impulse control, but this was successfully treated with mood-stabilizing medication. He was transferred briefly to the medical floor and readmitted pending discharge. For further details, please see previously dictated history. COURSE IN THE HOSPITAL: The patient was again followed by Dr. Munoz. Ongoing medical diagnoses included type 1 diabetes, hypertension, COPD, past history of pneumonia, deep venous thrombosis, vitamin D deficiency, left [id number] amputation, also hyperlipidemia. From a psychiatric standpoint, the patient was treated with Tegretol 200 mg twice a day for control of mood swings with good results. He was kept on his previous medications for his other ongoing medical problems. By the time of discharge, patient was stable enough to return to the [facility] environment. FINAL DIAGNOSES: AXIS I: Alzheimer dementia with behavioral disturbance, secondary depression. AXIS II: No diagnosis. AXIS III: Type 1 diabetes, hypertension, chronic obstructive pulmonary disease, deep venous thrombosis by history, vitamin D deficiency. AXIS IV: Moderate. AXIS V: 40. PLAN: 1. The patient is discharged on his current medications. 2. Follow up through primary care physician. TRANSINT:[id number] Voice Confirmation ID: [id number] DOCUMENT ID: [id number] ALEXEI LOO III, MD at 1705 CC: [id number] DICTATION DATE: 10/03/16 1023 IGNITION SPECIALIST: 10/03/16 1254 DIS IN 10/03/[address] [address]
== END 2016-10-03 12:31 | DRG 57 ==
LOC: D.PSYCH 16:30
PROVIDERS: ADMIT Psychiatry & Neurology Psychiatry
DX: G30.9 Alzheimer's disease, unspecified (principal); F02.81 Dementia in other diseases classified elsewhere, unspecified severity, with behavioral disturbance; E10.40 Type 1 diabetes mellitus with diabetic neuropathy, unspecified; Z79.4 Long term (current) use of insulin; F41.8 Other specified anxiety disorders; I10 Essential (primary) hypertension; Z79.01 Long term (current) use of anticoagulants; J44.9 Chronic obstructive pulmonary disease, unspecified; Z99.81 Dependence on supplemental oxygen; Z86.718 Personal history of other venous thrombosis and embolism; E55.9 Vitamin D deficiency, unspecified; Z89.612 Acquired absence of left leg above knee; E78.5 Hyperlipidemia, unspecified; K59.00 Constipation, unspecified

== ENCOUNTER → 2017-04-01 14:22 | Outpatient (CLI) | payer MEDICARE, MEDICAID ==
[2016-10-01 14:57] VITALS: BMI 26.1
[~2017-04-01 14:22] MED LIST changes: +FEXOFENADINE HC60 MG PO
[2017-04-01 15:37] LABS: ALBUMIN 3.7 g/dL (3.4-5.0); ANION GAP 5.6 mmol/L (8-16); BILIRUBIN - TOTAL 0.44 mg/dL (0.2-1.3); CALCIUM 9.1 mg/dL (8.5-10.1); CARBON DIOXIDE 35.6 mmol/L (21.0-32.0); CREATININE - SERUM 1.3 mg/dL (0.6-1.3); POTASSIUM - SERUM 4.2 mmol/L (3.5-5.1); PROTEIN - SERUM 7.5 g/dL (6.4-8.2); THYROID STIMULATING HORMONE 1.04 uIU/mL (0.36-3.74)
== END | disposition home or self-care (01) ==
LOC: D.RAD 03-27 15:00 → D.LAB 03-27 15:00 → D.RAD 14:22
PROVIDERS: Internal Medicine Gastroenterology
DX: K59.00 Constipation, unspecified (principal); K76.0 Fatty (change of) liver, not elsewhere classified; R10.10 Upper abdominal pain, unspecified; R14.0 Abdominal distension (gaseous); R77.2 Abnormality of alphafetoprotein; R93.8 Abnormal findings on diagnostic imaging of other specified body structures; R94.5 Abnormal results of liver function studies

== ENCOUNTER 2019-01-30 22:01 | Inpatient (IN) | payer MEDICARE, MEDICAID ==
[2019-01-30 23:01] LABS: APPEARANCE CLOUDY (CLEAR); BILIRUBIN NEGATIVE (NEGATIVE); COLOR YELLOW (YELLOW); GLUCOSE 1000 mg/dL (NEGATIVE); KETONE NEGATIVE (NEGATIVE); NITRITE NEGATIVE (NEGATIVE); PROTEIN TRACE mg/dL (NEGATIVE); UROBILINOGEN NORMAL (NORMAL)
[2019-01-30 23:02] LABS: RED CELLS - URINE 0-5 /hpf (0-5); WHITE CELLS - URINE 0-5 /hpf (0-5)
[2019-01-30 23:03] LABS: AMORPHOUS SEDIMENT >1+ /lpf (NONE SEEN); BACTERIA MODERATE /hpf (NONE SEEN)
[2019-01-30 23:19] LABS: BASOPHILS 0.2 % (0-2); EOSINOPHILS 0.7 % (0-7); HEMATOCRIT 33.7 % (42.0-54.0); HEMOGLOBIN 10.9 g/dL (13.5-17.5); IMMATURE GRANULOCYTES 0.5 % (0-5); LYMPHOCYTES 11.4 % (15-50); MCH 29.6 pg (26.0-34.0); MCHC 32.3 g/dL (31.0-37.0); MCV 91.6 fL (80.0-100.0); MEAN PLATELET VOLUME 10.3 fL (7.4-10.4); MONOCYTES 8.5 % (2-11); NEUTROPHILS 78.7 % (40-80); RBC 3.68 10x6/uL (4.20-6.10); RDW 14.6 % (11.5-14.5); WBC 10.1 10x3/uL (4.8-10.8)
[2019-01-30 23:21] LABS: PLATELET COUNT 121 10x3/uL (130-400)
[2019-01-30 23:41] LABS: ALBUMIN 2.9 g/dL (3.4-5.0); ANION GAP 11.4 mmol/L (8-16); BILIRUBIN - TOTAL 0.51 mg/dL (0.2-1.3); CALCIUM 9.1 mg/dL (8.5-10.1); CARBON DIOXIDE 29.6 mmol/L (21.0-32.0); CREATININE - SERUM 1.1 mg/dL (0.6-1.3); PROTEIN - SERUM 7.7 g/dL (6.4-8.2)
[2019-01-31 03:41] VITALS: BP 98/57; BMI 26.6
[2019-01-31 04:00] VITALS: BP 98/57
[2019-01-31 08:03] VITALS: BMI 26.6
[2019-01-31 08:30] VITALS: BP 129/68
[2019-01-31 12:16] VITALS: BP 131/72
--- NOTE | 2019-01-31 14:32 | NUR ---
I have reviewed this patient and I concur with the Shift Assessment completed by the Licensed Practical Nurse today this shift.
[2019-01-31 16:55] VITALS: BP 116/66
--- NOTE | 2019-01-31 19:00 | NUR ---
ALERT AND ORIENTED BUT HAS TIMES OF CONFUSION. ABDOMEN DISTENDED. NON TENDER TO PALPATION. DENIES PAIN OR DISCOMFORT. IV IN THE LEFT AC. CALL LIGHT IN REACH.
[2019-01-31 20:00] VITALS: BP 113/60
[2019-02-01] VITALS: BP 125/66
--- NOTE | 2019-02-01 03:12 | NUR ---
I have reviewed this patient and I concur with the Shift Assessment completed by the Licensed Practical Nurse today this shift.
[2019-02-01 04:00] VITALS: BP 108/66
[2019-02-01 06:48] LABS: BASOPHILS 0 % (0-2); EOSINOPHILS 0 % (0-7); HEMATOCRIT 29.2 % (42.0-54.0); HEMOGLOBIN 9.4 g/dL (13.5-17.5); IMMATURE GRANULOCYTES 0.3 % (0-5); LYMPHOCYTES 10.3 % (15-50); MCH 29.6 pg (26.0-34.0); MCHC 32.2 g/dL (31.0-37.0); MCV 91.8 fL (80.0-100.0); MEAN PLATELET VOLUME 10.7 fL (7.4-10.4); MONOCYTES 6.4 % (2-11); PLATELET COUNT 125 10x3/uL (130-400); RBC 3.18 10x6/uL (4.20-6.10)
[2019-02-01 06:57] LABS: WBC 6.6 10x3/uL (4.8-10.8)
[2019-02-01 08:33] LABS: ANION GAP 14.2 mmol/L (8-16); CALCIUM 8.9 mg/dL (8.5-10.1); CARBON DIOXIDE 25.6 mmol/L (21.0-32.0); CREATININE - SERUM 1.2 mg/dL (0.6-1.3); POTASSIUM - SERUM 3.8 mmol/L (3.5-5.1)
[2019-02-01 09:25] VITALS: BP 121/73
[2019-02-01 13:00] VITALS: BP 122/71
[2019-02-01 18:20] VITALS: BP 120/74
[2019-02-01 20:00] VITALS: BP 126/68
--- NOTE | 2019-02-01 20:00 | NUR ---
ALERT AND ORIENTED WITH TIMES OF CONFUSION. PATIENT ANSWERS QUESTIONS APPROPRIATELY BUT MUMBLES AT TIMES. HAS LEFT FOREARM IV THAT IS PATENT WITHOUT REDNESS OR TENDERNESS TO INSERTION SITE. ABDOMEN IS OBESE AND DISTENDED. STATES THAT HIS BELLY IS "ALWAYS LIKE THIS". BOWEL SOUNDS ACTIVE. COMPLAINS OF HEADACHE. STATES HE WOULD LIKE A TYLENOL WITH NIGHT TIME MEDICINE. DENIES ANY OTHER DISTRESS AT THIS TIME. CALL LIGHT IN REACH.
[2019-02-02] VITALS: BP 136/76
[2019-02-02 04:00] VITALS: BP 137/73
--- NOTE | 2019-02-02 04:49 | NUR ---
I have reviewed this patient and I concur with the Shift Assessment completed by the Licensed Practical Nurse today this shift.
--- NOTE | 2019-02-02 05:59 | NUR ---
PT DEVELOPING A RED RASH ACROSS ABDOMEN AND CHEST. DOES NOT STATE ANY PAIN OR ITCHING FROM RASH. ABDOMEN REMAINS DISTENDED. PATIENT INSISTS THAT "ITS ALWAYS BEEN THIS WAY." CPOC
[2019-02-02 08:45] VITALS: BP 129/68
--- NOTE | 2019-02-02 11:36 | NUR ---
C/O NAUSEA AT THIS TIME WAS MEDICATED WITH ZOFRAN PER ORDER. FAMILY AT BEDSIDE.
--- NOTE | 2019-02-02 12:15 | MORECARE ---
CASE MANAGEMENT DISCHARGE SUMMARY PATIENT: YIN CRUZ UNIT: [id number] ADM DATE: 01/31/19 AGE: 73 : 46 SEX: M ROOM/BED: D.2234 AUTHOR: KELVIN VIZCARRA PHYSICIAN: REFERRING PHYSICIAN: MARISOL WOOD MD DATE OF SERVICE: 02/02/19 Discharge Plan Patient Name: YIN CRUZ Facility: [facility]:[place] : 1945 Planned Disposition: [facility] w Plan Readm Anticipated Discharge Date: 02/02/19 Discharge Date: Expected LOS: 2 Initial Reviewer: [email or web address] Initial Review Date: 02/02/2019 Generated: 02/02/19 1:14 pm Patient Name: YIN CRUZ Page [id number] at 1215 All edits/amendments must be made on the electronic document DICTATION DATE: 02/02/19 1214 WIRE WEB WORKER: JAIDEN 02/02/19 1214 RPT#: [id number] DC DATE: STATUS: ADM IN [facility] [address] [place] [address] END OF REPORT
--- NOTE | 2019-02-02 12:22 | MORECARE ---
CASE MANAGEMENT DISCHARGE SUMMARY PATIENT: YIN CRUZ UNIT: [id number] ADM DATE: 01/31/19 AGE: 73 : 46 SEX: M ROOM/BED: D.2234 AUTHOR: KELVIN VIZCARRA PHYSICIAN: REFERRING PHYSICIAN: MARISOL WOOD MD DATE OF SERVICE: 02/02/19 Discharge Plan Patient Name: YIN CRUZ Facility: [facility]:[place] : 1945 Planned Disposition: [facility] Facility w Plan Readm Anticipated Discharge Date: 02/02/19 Discharge Date: Expected LOS: 2 Initial Reviewer: [email or web address] Initial Review Date: 02/02/2019 Generated: 02/02/19 1:22 pm Comments DCP- Discharge Planning Updated by [email or web address]: Regina Carvajal on 02/02/19 11:[address] Patient Name: YIN CRUZ Admission Status: ER Accout number: [id number] Admission Date: 01-31-2019 : 1945 Admission Diagnosis:CHRONIC OBSTRUCTIVE PULMONARY DISEASE W (ACUTE) EXACERB Attending: MARISOL WOOD Current LOS: 2 Anticipated DC Date: 02-02-2019 Planned Disposition: [facility] w Plan Readm Primary Insurance: [facility] MEDICARE SOLUTIONS Discharge Planning Comments: Received orders for discharge. I spoke with Rosenda at [facility] and she states he has been in a skilled bed and will return to a skilled bed. She states that they will pick him up at 1:45, clinical faxed. I called his sister (Darcie) and informed her that he was returning to [place] today. She states he has lived there since June of 2017. She states that he is on oxygen 24/7 and completely dependent on the nursing staff there. She agrees with discharge plan. I also informed patient and he agrees to discharge as well. CM will continue to follow and assist with discharge planning/needs. Ballast Regulator Operator: Regina Carvajal Last DP export: 02/02/19 11:15 a Patient Name: YIN CRUZ Page [id number] at 1222 All edits/amendments must be made on the electronic document DICTATION DATE: 02/02/19 122 HOSPICE CHAPLAIN: JAIDEN 02/02/19 1222 RPT#: [id number] DC DATE: STATUS: ADM IN [facility] [address] [place] [address] END OF REPORT
--- NOTE | 2019-02-02 12:29 | MORECARE ---
CASE MANAGEMENT DISCHARGE SUMMARY PATIENT: YIN CRUZ UNIT: [id number] ADM DATE: 01/31/19 AGE: 73 : 46 SEX: M ROOM/BED: D.2234 AUTHOR: KELVIN VIZCARRA PHYSICIAN: REFERRING PHYSICIAN: MARISOL WOOD MD DATE OF SERVICE: 02/02/19 Discharge Plan Patient Name: YIN CRUZ Facility: [facility]:[place] : 1945 Planned Disposition: [facility] Facility w Plan Readm Anticipated Discharge Date: 02/02/19 Discharge Date: Expected LOS: 2 Initial Reviewer: [email or web address] Initial Review Date: 02/02/2019 Generated: 02/02/19 1:29 pm Comments DCP- Discharge Planning Updated by [email or web address]: Regina Carvajal on 02/02/19 11:[address] Patient Name: YIN CRUZ Admission Status: ER Accout number: [id number] Admission Date: 01-31-2019 : 1945 Admission Diagnosis:CHRONIC OBSTRUCTIVE PULMONARY DISEASE W (ACUTE) EXACERB Attending: MARISOL WOOD Current LOS: 2 Anticipated DC Date: 02-02-2019 Planned Disposition: [facility] w Plan Readm Primary Insurance: [facility] MEDICARE SOLUTIONS Discharge Planning Comments: Received orders for discharge. I spoke with Rosenda at [facility] and she states he has been in a skilled bed and will return to a skilled bed. She states that they will pick him up at 1:45, clinical faxed. I called his sister (Darcie) and informed her that he was returning to [facility] today. She states he has lived there since June of 2017. She states that he is on oxygen 24/7 and completely dependent on the nursing staff there. She agrees with discharge plan. I also informed patient and he agrees to discharge as well. CM will continue to follow and assist with discharge planning/needs. Production Material Handler: Regina Carvajal External Providers External Provider: [facility] Next Contact Date: Service Request Date: Service Type: Resolution: Reviewer: Comments: Last DP export: 02/02/19 11:22 a Patient Name: YIN CRUZ Page [id number] at 1229 All edits/amendments must be made on the electronic document DICTATION DATE: 02/02/191227 FIREWORKS MAKER: JAIDEN 02/02/191227 RPT#: [id number] DC DATE: STATUS: ADM IN [facility] [address] [place] [address] END OF REPORT
[2019-02-02 13:02] VITALS: BP 120/70
--- NOTE | 2019-02-02 14:18 | NUR ---
DC BACK TO [facility] AND REPORT WAS GIVEN TO CHARGE NURSE. NO C/L NOTED UPON DC. WAS IN STABLE CONDITION. TRANSPORTED VIA FACILITY [facility].
--- NOTE | 2019-02-04 16:23 | MORECARE ---
CASE MANAGEMENT DISCHARGE SUMMARY PATIENT: YIN CRUZ UNIT: [id number] ADM DATE: 01/31/19 AGE: 73 : 46 SEX: M ROOM/BED: D.2234 AUTHOR: KELVIN VIZCARRA PHYSICIAN: REFERRING PHYSICIAN: MARISOL WOOD MD DATE OF SERVICE: 02/04/19 Discharge Plan Patient Name: YIN CRUZ Facility: [facility]:[place] : 1945 Planned Disposition: [facility] Facility w Plan Readm Anticipated Discharge Date: 02/02/19 Discharge Date: 02/02/2019 Expected LOS: 2 Initial Reviewer: [email or web address] Initial Review Date: 02/02/2019 Generated: 02/04/19 5:22 pm Comments DCP- Discharge Planning Updated by [email or web address]: Regina Carvajal on 02/02/19 11:[address] Patient Name: YIN CRUZ Admission Status: ER Accout number: [id number] Admission Date: 01-31-2019 : 1945 Admission Diagnosis:CHRONIC OBSTRUCTIVE PULMONARY DISEASE W (ACUTE) EXACERB Attending: MARISOL WOOD Current LOS: 2 Anticipated DC Date: 02-02-2019 Planned Disposition: [facility] w Plan Readm Primary Insurance: [facility] [employer] SOLUTIONS Discharge Planning Comments: Received orders for discharge. I spoke with Rosenda at [facility] and she states he has been in a skilled bed and will return to a skilled bed. She states that they will pick him up at 1:45, clinical faxed. I called his sister (Darcie) and informed her that he was returning to [place] today. She states he has lived there since June of 2017. She states that he is on oxygen 24/7 and completely dependent on the nursing staff there. She agrees with discharge plan. I also informed patient and he agrees to discharge as well. CM will continue to follow and assist with discharge planning/needs. Feather Drying Machine Operator: Regina Carvajal Coverage Notice Reviewer: [email or web address] - Regina Carvajal Notice Issued Date-Time: 02/02/2019 16:18 Notice Type: Patient Choice Letter Notice Delivered To: Patient Relationship to Patient: Self Communications Planner Name: Delivery Method: HAND - Hand Delivered Ericka Days: Prior Verbal Notification: Recipient Understood Notice: Yes Recipient Signature: Yes Med Rec Note Co-signed by Attending: Coverage Notice Comment: Alert and oriented. [facility] for [facility]. States he has lived there for 2 years. Last DP export: 02/02/19 11:29 a Patient Name: YIN CRUZ Page [phone] at 1623 All edits/amendments must be made on the electronic document DICTATION DATE: 02/04/191621 SALES DESIGNER: JAIDEN 02/04/191621 RPT#: [id number] DC DATE:02/02/19 STATUS: DIS IN [facility] [address] [place] [address] END OF REPORT
== END 2019-02-02 14:21 | DRG 864 ==
LOC: D.ER 22:01 → D.MS 01-31 02:11
PROVIDERS: Family Medicine; ADMIT Legal Medicine; ATTEND Legal Medicine
DX: R50.9 Fever, unspecified (principal); J44.1 Chronic obstructive pulmonary disease with (acute) exacerbation; K59.00 Constipation, unspecified; E11.9 Type 2 diabetes mellitus without complications; I10 Essential (primary) hypertension; R10.9 Unspecified abdominal pain